=== PATIENT | female | born 1955 | race Caucasian/White ===

== ENCOUNTER 2020-09-30 20:05 | Inpatient (IN) | payer MEDICARE, SELFPAY ==
[2020-09-30 20:06] VITALS: BP 135/92; PULSE 66; RESP 22; TEMP 37.7; O2SAT 84; BMI 33.0
[2020-09-30 20:10] VITALS: O2SAT 97; O2SAT 98
--- NOTE | 2020-09-30 20:21 | ED.VIS.GEN ---
History of Present Illness Chief Complaint: Shortness of Breath Informant: Patient Narrative: 64-year-old female presenting with hypoxia. She said she got sick about 2 weeks ago and started off with a cough, congestion, runny nose. She is had no change in taste or smell. He does not know if she had a fever. She states is not taking Tylenol and ibuprofen. She has a decreased appetite but no nausea or vomiting. She denies chest pain. She states she is short of breath especially when she is coughing a lot. Patient was seen at urgent care and had pulse ox in the 80s. She states she does not wear home O2. Past Medical History - Allergies and Home Meds Allergies/Adverse Reactions: Allergies epinephrine Allergy (Verified 09/30/20 20:10) Anaphylaxis Penicillins Adverse Reaction (Verified 09/30/20 20:10) NEEDS FOLLOW-UP Past Medical History: - - MS, GERD, hyperlipidemia Surgical History: noncontributory Lives: Alone Smoking Status: Former smoker Alcohol: None Drugs: None Review of Systems General: Reports: Malaise. Denies: Chills, Fever, Sweats Eyes: Denies: Visual changes - bilaterally, Diplopia ENT: Reports: Rhinorrhea, - - No change in taste or smell Cardiovascular: Denies: Chest pain, Palpitations Respiratory: Reports: Dyspnea, Cough, Sputum Gastrointestinal: Reports: - - Decreased appetite. Denies: Abdominal pain, Nausea, Vomiting Genitourinary: Denies: Dysuria, Hematuria Musculoskeletal: Reports: Myalgias. Denies: Arthralgias Skin: Denies: Rash, Abscess Neurological: Reports: Headache. Denies: Parasthesia, Numbness Physical Exam Vital Signs/Narrative: Vital Signs Temp Pulse Resp BP Pulse Ox 09/30/20 20:10 97 09/30/20 20:06 99.8 F H 66 22 H 135/92 H 84 Inital Vital Signs reviewed: Yes General: Unkempt, Acute Distress - Hypoxic on room air Eyes: Perrl, EOMI ENT: Dry mucous membranes, Nasal congestion Cardiovascular: Regular rate, Regular rhythm Respiratory: No distress, Decreased Air Movement Abdomen: Soft, Nontender, Nondistended Extremities: Nontender, No edema Skin: Normal color, No rash. Negative for: Cyanosis Neurological: Alert, Oriented x3, Left side facial droop Psychological: Negative for: Depressed, Tearful Diagnostic/Tx/Re-eval Clinical Impression(s) from Imaging Studies Chest X-Ray 09/30/20 21:36 IMPRESSION: Mild to moderate bilateral pneumonia, right greater than left. Electronically Signed: Carlos Salomon MD at 22:18 EST , Service support , Laboratory Data 09/30/20 09/30/20 09/30/20 20:20 20:20 20:20 WBC 4.7 RBC 4.39 Hgb 12.9 Hct 37.7 MCV 85.9 MCH 29.4 MCHC 34.2 RDW Std Deviation 41.6 RDW Coeff of Antonio 13.2 Plt Count 129 L MPV 10.1 Immature Gran % (Auto) 0.400 Neut % (Auto) 75.6 H Lymph % (Auto) 16.3 L [place] % (Auto) 7.5 Eos % (Auto) 0.0 Baso % (Auto) 0.2 Absolute Neuts (auto) 3.5 Absolute Lymphs (auto) 0.76 L Nucleated RBC % 0 Reactive Lymphocytes RARE PT 12.7 INR 1.0 APTT 33.4 Sodium 137 Potassium 3.3 L Chloride 103 Carbon Dioxide 28.0 Anion Gap 6 BUN 6 L Creatinine 0.74 Estim Creat Clear Calc 59.48 Est GFR (MDRD) Af Amer 101 Est GFR (MDRD) Non-Af 84 BUN/Creatinine Ratio 8.1 L Glucose 110 H Lactic Acid Calcium 8.4 L Total Bilirubin 0.50 AST 43 H ALT 28 Alkaline Phosphatase 82 Troponin I < 0.015 Total Protein 7.2 Albumin 3.0 L Globulin 4.2 Albumin/Globulin Ratio 0.7 L Urine Color Urine Clarity Urine pH Ur Specific [place] [employer] Urine Protein Urine Glucose (UA) Urine Ketones Urine Occult Blood Urine Nitrite Urine Bilirubin Urine Urobilinogen Ur Leukocyte Esterase Urine RBC Urine WBC Ur Squamous Epith Cells Urine Bacteria Urine Mucus COVID-19 (SARAHY) 09/30/20 09/30/20 09/30/20 20:20 21:35 21:50 WBC RBC Hgb Hct MCV MCH MCHC RDW Std Deviation RDW Coeff of Antonio Plt Count MPV Immature Gran % (Auto) Neut % (Auto) Lymph % (Auto) [place] % (Auto) Eos % (Auto) Baso % (Auto) Absolute Neuts (auto) Absolute Lymphs (auto) Nucleated RBC % Reactive Lymphocytes PT INR APTT Sodium Potassium Chloride Carbon Dioxide Anion Gap BUN Creatinine Estim Creat Clear Calc Est GFR (MDRD) Af Amer Est GFR (MDRD) Non-Af BUN/Creatinine Ratio Glucose Lactic Acid 1.3 Calcium Total Bilirubin AST ALT Alkaline Phosphatase Troponin I Total Protein Albumin Globulin Albumin/Globulin Ratio Urine Color Yellow Urine Clarity Clear Urine pH 7.0 Ur Specific [place] [employer] 1.005 Urine Protein 15 H Urine Glucose (UA) Normal Urine Ketones Negative Urine Occult Blood Negative Urine Nitrite Negative Urine Bilirubin Negative Urine Urobilinogen Normal Ur Leukocyte Esterase 25 H Urine RBC 0 SEEN Urine WBC 0-5 SEEN Ur Squamous Epith Cells 0 SEEN Urine Bacteria 0 SEEN Urine Mucus 0 SEEN COVID-19 (SARAHY) Detected - Rhythm Strip Rhythm Strip: Sinus Rhythm - EKG Initial EKG Interpretation: Sinus Rhythm, No Acute Injury Pattern - Medical Decision Making 64-year-old female presents with hypoxia. She states is been sick for 2 weeks. She does not believe she had a fever. Patient was tachypneic and hypoxic on arrival sepsis work-up was initiated. Patient was not given a bolus of fluids due to concern for Covid?19. Her EKG interpreted by myself is sinus rhythm at 65 bpm. There is no signs of ischemic change. Chest x-ray shows bilateral pneumonia as read by myself and the radiologist. Lab work-up is consistent with viral pneumonia and she tested positive for Covid?19. Her pulse ox is stable on 2 L of O2 via nasal cannula. Patient was discussed with hospitalist due to need for oxygen supplementation. She will be admitted to the hospital in stabilized condition. Impression: 1. Covid?19 pneumonia
--- NOTE | 2020-09-30 20:33 | EKG12_ITS ---
Test Reason : SOB Blood Pressure : / mmHG Vent. Rate : 065 BPM Atrial Rate : 065 BPM P-R Int : 190 ms QRS Dur : 080 ms QT Int : 396 ms P-R-T Axes : 019 -05 004 degrees QTc Int : 411 ms Normal sinus rhythm Minimal voltage criteria for LVH, may be normal variant Borderline ECG Confirmed by PARAMJIT BURNETT, NING ([id number]), supervising film or videotape editor MANJIT GUIDO ([id number]) on 10/02/2020 2:06:36 PM Referred By: Wilfred Miller Confirmed By:NING YUSUF MD
[2020-09-30 20:36] VITALS: O2SAT 96
[2020-09-30 20:46] LABS: Absolute Lymphocyte Count 0.76 X10^3/uL (0.83-4.51); Absolute Neutrophil Count 3.5 X10^3/uL (2.0-7.7); Basophil# 0.01 X10^3/uL; Basophil% 0.2 % (0-1); Hematocrit 37.7 % (37-47); Hemoglobin 12.9 g/dL (12.0-15.0); Lymphocyte # 0.76 X10^3/ul (4.0); Lymphocyte % 16.3 % (19-41); Mean Corp Hgb Conc 34.2 g/dL (32-36); Mean Corpuscular Hgb 29.4 pg (27.0-32.0); Mean Corpuscular Volume 85.9 fL (81-99); Mean Platelet Vol. 10.1 fl (6.2-12.0); Monocyte# 0.35 X10^3/uL; Monocyte% 7.5 % (0-10); NRBC Flagged by Analyzer 0 % (0-5); Neutrophil # 3.53 X10^3/uL (2.7-7.7); Neutrophil % 75.6 % (47-70); POSITIVE MORPHOLOGY YES; Platelet Count 129 K/mm3 (150-450); RBC Distribution Width CV 13.2 % (11.6-14.6); RBC Distribution Width SD 41.6 fl (35.1-43.9); Red Blood Count 4.39 M/mm3 (4.2-5.4); White Blood Count 4.7 K/mm3 (4.4-11.0)
[2020-09-30 20:50] LABS: Differential Indicated SCAN CRITERIA MET
[2020-09-30 20:53] LABS: Prothrombin Time (Protime)PT. 12.7 SECONDS (11.7-14.9)
[2020-09-30 20:54] LABS: Partial Thromboplast Time 33.4 Seconds (24.1-36.2)
[2020-09-30 21:08] LABS: ALB/GLOB Ratio 0.7 RATIO (0.9-2.4); AST(SGOT) 43 U/L (15-37); Alanine Aminotransfer ALT/SGPT 28 U/L (13-56); Alkaline Phosphatase 82 U/L (45-117); Anion Gap 6 (5-15); BUN 6 mg/dL (7-18); BUN/Creat Ratio 8.1 RATIO (10-20); Calcium,Total 8.4 mg/dL (8.5-10.1); Chloride 103 mmol/L (98-107); Creatinine, Serum 0.74 mg/dL (0.55-1.02); EST Glomerular Filtration Rate 84 mL/min (>60); Est Glom Filt Rate - Afr Amer 101 mL/min (>60); Estimated Creatinine Clearance 59.48 ml/min; Globulin 4.2 g/dL (2.2-4.2); Glucose 110 mg/dL (74-106); Lactic Acid 1.3 mmol/L (0.4-1.9); Potassium 3.3 mmol/L (3.5-5.1); Protein, Total 7.2 g/dL (6.4-8.2); Sodium Level 137 mmol/L (136-145)
[2020-09-30 21:10] VITALS: BP 125/60; PULSE 61; RESP 18; TEMP 38.8; O2SAT 96
[2020-09-30 21:29] LABS: Reactive Lymphocyte RARE
--- NOTE | 2020-09-30 21:36 | RAD_ITS ---
STUDY: X-RAY CHEST REASON FOR EXAM: Female, 64 years old. patient with cough, shortness of breath, diarrhea, lethargy for 2 weeks. patient sent over from urgent care for low pulse ox. TECHNIQUE: Single AP portable view of the chest. COMPARISON: None. FINDINGS: Mild patchy consolidation is present in the left mid to lower lung narayanan and moderate consolidation is present throughout the right mid to lower lung narayanan. Trace bilateral pleural effusions also present. Normal size heart. Normal mediastinum and belen. Normal visualized pulmonary arteries. Normal visualized aortic arch and descending thoracic aorta. There are diffuse degenerative changes of the visualized thoracic spine. Normal visualized ribs, clavicles, and shoulders. There is no demonstrated abnormality of the visualized soft tissue structures of the upper abdomen. RAD/Chest 1 View (Portable) IMPRESSION: Mild to moderate bilateral pneumonia, right greater than left. Electronically Signed: Carlos Salomon MD at 22:18 EST , Service support ,
[2020-09-30 21:58] LABS: Bacteria 0 SEEN /hpf (None Seen); Mucous, Urine 0 SEEN /hpf (<or=2+); Red Blood Cells-Urine 0 SEEN /hpf (0-5); Squamous Epithelial Cells - UA 0 SEEN /hpf (5-10)
[2020-09-30 22:04] LABS: Color, Urine Yellow (Yellow); Glucose, Dipstick Normal (Normal); Ketone-Dipstick Negative (Negative); Leukocyte Esterase-Dipstick 25 /ul (Negative); Nitrite-Dipstick Negative (Negative); Occult Blood-Urine Negative /ul (Negative); Protein-Dipstick 15 mg/dl (Negative); Specific Gravity, Urine 1.005 (1.002-1.030); Urine Bilirubin Dipstick Negative (Negative); Urine Clarity Clear (Clear); Urine Urobilinogen Normal (Normal)
[2020-09-30 22:10] VITALS: BP 131/61; PULSE 62; RESP 18; TEMP 37.2; O2SAT 95
[2020-09-30 22:17] LABS: White Blood Cells 0-5 SEEN /hpf (0-5)
[2020-09-30 23:00] LABS: Probe Check PASS; Specimen Processing Control PASS
[2020-09-30 23:10] VITALS: BP 149/84; PULSE 59; RESP 18; TEMP 37.8; O2SAT 96
--- NOTE | 2020-09-30 23:51 | PCM.HP.STD ---
Problem List (1) SARS pneumonia Status: Acute (2) COVID-19 Status: Acute History of Present Illness Date of Admission: 09/30/20 Chief Complaint: malaise The patient is a 64 year old F with a significant osteopenia emergency department with a 2-week history of malaise. Associated with her symptoms is Shortness of breath and a productive cough of clear sputum. Further she has back pain; lightheadedness; general body weakness and fatigue. She department on room air her oxygen saturation was in the 80s. Past Medical History Medical History: Medical History (Last Updated 10/01/20 @ 05:[address] Wilfred Miller MD) Hyperlipidemia E78.5 Allergies epinephrine Allergy (Verified 09/30/20 20:10) Anaphylaxis Penicillins Adverse Reaction (Verified 09/30/20 20:10) NEEDS FOLLOW-UP Home Medications: Ambulatory Orders Medication Instructions Recorded Alendronate Sodium 70 mg PO SA 09/30/20 Atorvastatin Calcium [Lipitor] 20 mg PO QHS 09/30/20 Famotidine 20 mg PO BID 09/30/20 Oxybutynin [Ditropan] 5 mg PO BID 09/30/20 Loratadine 10 mg PO DAILY 10/01/20 Surgical History: hysterectomy, - - spur removal from feet Lives: Alone Smoking Status: Never smoker Alcohol: None Drugs: None - *Family History Maternal History Items: Diabetes Paternal History Items: Dementia Review of Systems Constitutional: Reports: Malaise, Fatigue. Denies: Weight Change HEENT: Denies: Head Aches, Sinus Congestion, Sinus Drainage Cardiovascular: Reports: Light Headedness. Denies: Chest Pain, Palpitations Respiratory: Reports: Cough, Shortness of Breath, Sputum production Gastrointestinal: Denies: Abdominal Pain, Nausea, Vomiting Genitourinary: Denies: Dysuria Musculoskeletal: Reports: Back Pain. Denies: Joint Pain, Joint Tenderness Skin: Denies: Rash, Wounds Neurological: Denies: Numbness, Tingling, Focal weakness Psychiatric: Denies: Anxiety, Depression, Homicidal Ideations, Suicidal Ideations Hematologic/ Lymphatic: Denies: Easy Bruising, Easy Bleeding VTE Information - Inpt Only VTE Present on Admission: No VTE Mechan Device Prophylaxis: None VTE Pharm Prophylaxis ordered?: Yes Patient Problems: Active and Suspected Problems (Last Updated 10/01/20 @ 05:[address] Wilfred Miller MD) SARS pneumonia (Acute) COVID-19 (Acute) - Physical Exam Vitals/I&O's: Vital Signs Temp Pulse Resp BP Pulse Ox 100.1 F H 59 L 18 149/84 H 96 09/30/20 23:10 09/30/20 23:10 09/30/20 23:10 09/30/20 23:10 09/30/20 23:10 Oxygen Flow Rate (L/min) 2 Oxygen Delivery Method Nasal Cannula Weight: 79.3 kg Body Mass Index (BMI) 33.0 General: Alert, Oriented x3, Cooperative HEENT: Atraumatic, PERRLA, EOMI, Normocephalic Neck: Supple, No JVD, Negative Carotid Bruits Lungs: Wheezes Cardiovascular: Regular rate, Normal S2, No murmurs Abdomen: Bowel Sounds Present, Soft, Non Tender Extremities: No edema, Capillary Refill Less than 3 Seconds Skin: No rashes, No breakdown Musculoskeletal: No Tenderness to Palpation of Joints or Extremities Neurological: Cranial nerves II-XII grossly intact Psych/Mental Status: Normal Affect, Appropriate Laboratory Results 09/30/20 20:20: WBC 4.7, RBC 4.39, Hgb 12.9, Hct 37.7, MCV 85.9, MCH 29.4, MCHC 34.2, RDW Std Deviation 41.6, RDW Coeff of Antonio 13.2, Plt Count 129 L, MPV 10.1, Immature Gran % (Auto) 0.400, Neut % (Auto) 75.6 H, Lymph % (Auto) 16.3 L, [place] % (Auto) 7.5, Eos % (Auto) 0.0, Baso % (Auto) 0.2, Absolute Neuts (auto) 3.5, Absolute Lymphs (auto) 0.76 L, Nucleated RBC % 0, Reactive Lymphocytes RARE 09/30/20 20:20: PT 12.7, INR 1.0, APTT 33.4 09/30/20 20:20: Sodium 137, Potassium 3.3 L, Chloride 103, Carbon Dioxide 28.0, Anion Gap 6, BUN 6 L, Creatinine 0.74, Estim Creat Clear Calc 59.48, Est GFR (MDRD) Af Amer 101, Est GFR (MDRD) Non-Af 84, BUN/Creatinine Ratio 8.1 L, Glucose 110 H, Calcium 8.4 L, Total Bilirubin 0.50, AST 43 H, ALT 28, Alkaline Phosphatase 82, Troponin I < 0.015, Total Protein 7.2, Albumin 3.0 L, Globulin 4.2, Albumin/Globulin Ratio 0.7 L 09/30/20 20:20: Lactic Acid 1.3 09/30/20 21:35: COVID-19 (SARAHY) Detected 09/30/20 21:50: Urine Color Yellow, Urine Clarity Clear, Urine pH 7.0, Ur Specific [place] 1.005, Urine Protein 15 H, Urine Glucose (UA) Normal, Urine Ketones Negative, Urine Occult Blood Negative, Urine Nitrite Negative, Urine Bilirubin Negative, Urine Urobilinogen Normal, Ur Leukocyte Esterase 25 H, Urine RBC 0 SEEN, Urine WBC 0-5 SEEN, Ur Squamous Epith Cells 0 SEEN, Urine Bacteria 0 SEEN, Urine Mucus 0 SEEN Assessment/Plan All Active Problems (Last Updated 10/01/20 @ 05:[address] Wilfred Miller MD) SARS pneumonia (Acute) COVID-19 (Acute) Acute hypoxemic respiratory insufficiency secondary to SARS coronavirus 2. Patient with oxygen saturation of 84% on room air and required supplemental oxygenation. Supplemental oxygenation continued. Impression of chest x-ray by radiologist: Mild to moderate bilateral pneumonia, right greater than left. Actual x-ray image was independently interpreted. I agree with the latest interpretation. COVID-19 PCR was positive. Procalcitonin ordered. D-dimer ordered returned elevated. Impression of chest CTA by radiologist: No demonstrated pulmonary embolism or anterior dissection. Ill-defined subpleural groundglass opacities are seen more prominent in the lung bases, may represent atypical pneumonia or viral pneumonia (COVID-19?). Actual CTA was independently visualized. I agree with radiologist interpretation. Tylenol for fever and Mucinex for cough ordered. Decadron and remdesivir ordered. Trend CBC and CMP. Hypokalemia Replaced Trend CMP. Dysuria Urinalysis was not revealing. Follow urine culture ordered at the emergency department. Osteopenia Alendronate continued HLD Lipitor continued Overactive bladder Ditropan continued Allergies: Loratadine continued DVT Prophylaxis Subcutaneous Lovenox ordered Inpatient E&M: [id number] Init Hosp L3
[2020-10-01] VITALS (10 sets, daily range): BP systolic 109–138; BP diastolic 56–78; PULSE 49–66; RESP 16–20; TEMP 35.5–37.7; O2SAT 92–96; BMI 29.2; BMI 29.3
--- NOTE | 2020-10-01 00:27 | PCS.PANDOC ---
PANDEMIC DOCUMENTATION INITIATED: Date: 10/01/2020 Time:0012
[2020-10-01] MEDS: 0.9% Saline Lock 10 ML Syringe IV ×2 (00:59→22:26)
[2020-10-01] MEDS: Acetaminophen 325 MG Tablet 650 MG PO (01:00)
[2020-10-01] MEDS: dexAMETHasone 10 MG/ML Vial 6 MG IV (01:00)
[2020-10-01 01:19] LABS: D-Dimer Quantitative (DVT/PE) 3.18 FEU/ug/m (0.27-0.49)
--- NOTE | 2020-10-01 01:20 | CT_ITS ---
STUDY: CTA CHEST REASON FOR EXAM: Female, 64 years old. ELEVATED D-DIMER, SEVERE ACUTE RESPIRATORY SYNDROME DUE TO COVID, O2 IN THE 80''S RADIATION DOSAGE (If Supplied By Facility): CTDIvol = ( 13.47 ) mGy, DLP = ( 381.79 ) mGycm TECHNIQUE: The examination was performed with the intravenous administration of IV 75mL Isovue-370. Post-processing of the angiographic images was performed, with multiplanar reformation and 3D reconstruction. Individualized dose optimization techniques were used for this CT. COMPARISON: None. FINDINGS: Normal enhancement of the main pulmonary artery and right and left pulmonary arteries. Normal enhancement of the bilateral peripheral pulmonary arteries. There is no demonstrated pulmonary embolism. Normal thoracic aorta and visualized great vessels. There is no demonstrated aortic dissection. Normal heart and pericardium. Normal mediastinum. Normal hilar regions. Normal visualized trachea and bronchi. The lungs are well expanded. Ill-defined subpleural groundglass opacities are seen more prominent in the lung bases , may represent atypical pneumonia or viral pneumonia (COVID-19 ?). Normal pleura. Normal chest wall structures. Normal osseous structures. Normal visualized upper abdomen. CT/CTA Chest W/WO Contrast IMPRESSION: No demonstrated pulmonary embolism or arterial dissection. Ill-defined subpleural groundglass opacities are seen more prominent in the lung bases , may represent atypical pneumonia or viral pneumonia (COVID-19 ?). Electronically Signed: Ermelinda Esquivel, at 2:51 EST Tel , Service support ,
[2020-10-01 02:17] LABS: Procalcitonin < 0.01 ng/mL (0.00-0.09)
[2020-10-01 05:44] LABS: Absolute Lymphocyte Count 0.66 X10^3/uL (0.83-4.51); Absolute Neutrophil Count 3.8 X10^3/uL (2.0-7.7); Basophil# 0.01 X10^3/uL; Basophil% 0.2 % (0-1); Hematocrit 37.9 % (37-47); Hemoglobin 12.7 g/dL (12.0-15.0); Lymphocyte # 0.66 X10^3/ul (4.0); Lymphocyte % 14.1 % (19-41); Mean Corp Hgb Conc 33.5 g/dL (32-36); Mean Corpuscular Hgb 28.9 pg (27.0-32.0); Mean Corpuscular Volume 86.3 fL (81-99); Mean Platelet Vol. 9.7 fl (6.2-12.0); Monocyte# 0.16 X10^3/uL; Monocyte% 3.4 % (0-10); NRBC Flagged by Analyzer 0 % (0-5); Neutrophil # 3.83 X10^3/uL (2.7-7.7); Neutrophil % 81.7 % (47-70); Platelet Count 134 K/mm3 (150-450); RBC Distribution Width CV 13.2 % (11.6-14.6); RBC Distribution Width SD 41.7 fl (35.1-43.9); Red Blood Count 4.39 M/mm3 (4.2-5.4); White Blood Count 4.7 K/mm3 (4.4-11.0)
[2020-10-01 05:58] LABS: ALB/GLOB Ratio 0.7 RATIO (0.9-2.4); AST(SGOT) 44 U/L (15-37); Alanine Aminotransfer ALT/SGPT 28 U/L (13-56); Albumin, Serum 2.8 g/dL (3.2-5.0); Alkaline Phosphatase 77 U/L (45-117); Anion Gap 5 (5-15); BUN 7 mg/dL (7-18); BUN/Creat Ratio 9.8 RATIO (10-20); Calcium,Total 8.3 mg/dL (8.5-10.1); Chloride 106 mmol/L (98-107); Creatinine, Serum 0.72 mg/dL (0.55-1.02); EST Glomerular Filtration Rate 88 mL/min (>60); Est Glom Filt Rate - Afr Amer 106 mL/min (>60); Estimated Creatinine Clearance 61.13 ml/min; Globulin 4.2 g/dL (2.2-4.2); Glucose 180 mg/dL (74-106); Magnesium 1.8 mg/dL (1.6-2.6); Potassium 4.5 mmol/L (3.5-5.1); Sodium Level 138 mmol/L (136-145)
[2020-10-01] MEDS: Enoxaparin 30 MG/0.3 ML Syringe SC ×2 (08:28→20:03)
[2020-10-01] MEDS: Oxybutynin 5 MG Tablet PO ×2 (08:29→20:03)
[2020-10-01] MEDS: dexAMETHasone 4 MG Tablet 6 MG PO (08:29)
[2020-10-01] MEDS: Famotidine 20 MG Tablet PO (08:29)
--- NOTE | 2020-10-01 14:05 | PN_ITS ---
Patient Problems: Active and Suspected Problems (Last Updated 10/01/20 @ 05:[address] Wilfred Miller MD) SARS pneumonia (Acute) COVID-19 (Acute) Reason for Visit: COVID 19 Subjective: Coughing fits. Diarrhea since yesterday. Vitals/I&O's: Vital Signs Temp Pulse Resp BP Pulse Ox 35.8 C L 66 20 H 109/61 92 10/01/20 11:59 10/01/20 11:59 10/01/20 11:59 10/01/20 11:59 10/01/20 11:59 Oxygen Flow Rate (L/min) 2 Oxygen Delivery Method Nasal Cannula Weight: 70.335 kg Body Mass Index (BMI) 29.2 Intake and Output for Last 24 Hours 09/29/20 09/30/20 10/01/20 23:59 23:59 23:59 Intake Total 251.75 / 251.75 Balance 251.75 / 251.75 General: Alert, No apparent distress HEENT: Atraumatic, Normocephalic Oral: Moist Mucosa, No Gingival or Mucosal Lesions/ Ulcerations Neck: No Nodes, Thyroid Normal Size and Texture Lungs: Clear to auscultation, Normal air movement, No rhonchi, No wheeze, No rales Cardiovascular: Regular rate, Regular Rhythm, Normal S1, Normal S2, No murmurs Abdomen: Bowel Sounds Present, Soft, Non Tender, Non-Distended, No Hepato- splenomegaly Extremities: No clubbing, No edema Skin: No rashes, No breakdown Psych/Mental Status: Normal Affect, Appropriate Laboratory Results 09/30/20 20:20: WBC 4.7, RBC 4.39, Hgb 12.9, Hct 37.7, MCV 85.9, MCH 29.4, MCHC 34.2, RDW Std Deviation 41.6, RDW Coeff of Antonio 13.2, Plt Count 129 L, MPV 10.1, Immature Gran % (Auto) 0.400, Neut % (Auto) 75.6 H, Lymph % (Auto) 16.3 L, [place] % (Auto) 7.5, Eos % (Auto) 0.0, Baso % (Auto) 0.2, Absolute Neuts (auto) 3.5, Absolute Lymphs (auto) 0.76 L, Nucleated RBC % 0, Reactive Lymphocytes RARE 09/30/20 20:20: PT 12.7, INR 1.0, APTT 33.4 09/30/20 20:20: Sodium 137, Potassium 3.3 L, Chloride 103, Carbon Dioxide 28.0, Anion Gap 6, BUN 6 L, Creatinine 0.74, Estim Creat Clear Calc 59.48, Est GFR (MDRD) Af Amer 101, Est GFR (MDRD) Non-Af 84, BUN/Creatinine Ratio 8.1 L, Glucose 110 H, Calcium 8.4 L, Total Bilirubin 0.50, AST 43 H, ALT 28, Alkaline Phosphatase 82, Troponin I < 0.015, Total Protein 7.2, Albumin 3.0 L, Globulin 4 .2, Albumin/Globulin Ratio 0.7 L 09/30/20 20:20: Lactic Acid 1.3 09/30/20 20:20: D-Dimer Quant (PE/DVT) 3.18 H* 09/30/20 20:20: Procalcitonin < 0.01 09/30/20 21:35: COVID-19 (SARAHY) Detected 09/30/20 21:50: Urine Color Yellow, Urine Clarity Clear, Urine pH 7.0, Ur Specific [place] 1.005, Urine Protein 15 H, Urine Glucose (UA) Normal, Urine Ketones Negative, Urine Occult Blood Negative, Urine Nitrite Negative, Urine Bilirubin Negative, Urine Urobilinogen Normal, Ur Leukocyte Esterase 25 H, Urine RBC 0 SEEN, Urine WBC 0-5 SEEN, Ur Squamous Epith Cells 0 SEEN, Urine Bacteria 0 SEEN, Urine Mucus 0 SEEN 10/01/20 05:32: WBC 4.7, RBC 4.39, Hgb 12.7, Hct 37.9, MCV 86.3, MCH 28.9, MCHC 33.5, RDW Std Deviation 41.7, RDW Coeff of [place] 13.2, Plt Count 134 L, MPV 9.7, Immature Gran % (Auto) 0.600, Neut % (Auto) 81.7 H, Lymph % (Auto) 14.1 L, [place] % (Auto) 3.4, Eos % (Auto) 0.0, Baso % (Auto) 0.2, Absolute Neuts (auto) 3.8, Absolute Lymphs (auto) 0.66 L, Nucleated RBC % 0 10/01/20 05:32: Sodium 138, Potassium 4.5, Chloride 106, Carbon Dioxide 27.0, Anion Gap 5, BUN 7, Creatinine 0.72, Estim Creat Clear Calc 61.13, Est GFR (MDRD) Af Amer 106, Est GFR (MDRD) Non-Af 88, BUN/Creatinine Ratio 9.8 L, Glucose 180 H, Calcium 8.3 L, Magnesium 1.8, Total Bilirubin 0.50, AST 44 H, ALT 28, Alkaline Phosphatase 77, Total Protein 7.0, Albumin 2.8 L, Globulin 4.2, Albumin/Globulin Ratio 0.7 L Current Medications Acetaminophen (Acetaminophen 325 Mg Tablet) 650 mg PO Q6H PRN PRN PRN Reason: Pain Score 1-10/Temp > 100.7 F Last Admin: 10/01/20 01:00 Dose: 325 mg Documented by: Albuterol Sulfate (Albuterol Sulfate 8 Gm Inhaler (60 Puffs)) 2 puff INHALATION Q6H PRN PRN PRN Reason: SOB/WHEEZING Atorvastatin Calcium (Atorvastatin Calcium 20 Mg Tablet) 20 mg PO QHS [facility] Dexamethasone (Dexamethasone 4 Mg Tablet) 6 mg PO DAILY [facility] Last Admin: 10/01/20 08:29 Dose: 6 mg Documented by: Enoxaparin Sodium (Enoxaparin 30 Mg/0.3 Ml Syringe) 30 mg SC BID [facility] Last Admin: 10/01/20 08:28 Dose: 30 mg Documented by: Famotidine (Famotidine 20 Mg Tablet) 20 mg PO DAILY [facility] Last Admin: 10/01/20 08:29 Dose: 20 mg Documented by: Remdesivir 100 mg/ Sodium (Chloride) 250 mls @ 125 mls/hr IV DAILY@2200 [facility] Stop: 10/04/20 23:59 Sodium Chloride () 250 mls @ 15 mls/hr IV .[id number] PRN PRN Reason: Saline Flush Last Infusion: 10/01/20 03:07 Dose: 15 mls/hr Documented by: Melatonin (Melatonin 3 Mg Tablet) 3 mg PO QHS PRN PRN PRN Reason: INSOMNIA Miscellaneous Information (Inhaler, Assist Devices 1 Each Spacer) 1 each INHALATION Q6H PRN PRN PRN Reason: SOB/WHEEZING Ondansetron HCl (Ondansetron 4 Mg/2 Ml Vial) 4 mg IV Q8H PRN PRN PRN Reason: NAUSEA/VOMITING Oxybutynin Chloride (Oxybutynin 5 Mg Tablet) 5 mg PO BID [facility]IN Last Admin: 10/01/20 08:29 Dose: 5 mg Documented by: Sodium Chloride (0.9% Saline Lock 10 Ml Syringe) 10 - 40 ml IV UD PRN PRN Reason: SALINE FLUSH Last Admin: 10/01/20 00:59 Dose: 10 ml Documented by: STROKE Vital Signs/Narrative: Vital Signs Temp Pulse Resp BP Pulse Ox 10/01/20 11:59 35.8 C L 66 20 H 109/61 92 10/01/20 10:53 95 Medical Necessity - Tobacco Use Smoking Status: Never smoker Assessment/Plan All Active Problems (Last Updated 10/01/20 @ 05:[address] Wilfred Miller MD) SARS pneumonia (Acute) COVID-19 (Acute) 1. COVID 19 pneumonia * on dexa and rem 2. acute hypoxic respiratory insufficiency * 2/2 above * wean oxygen as tolerated 3. Diarrhea * prior to arrival * loperamide 4. VTE prophylaxis: LMWH Inpatient E&M: [id number] Subs Hosp L2
[2020-10-01] MEDS: guaiFENesin/Codeine 5 ML UDC PO ×2 (14:26→22:03)
[2020-10-01] MEDS: Loperamide 2 MG Capsule PO (14:27)
--- NOTE | 2020-10-01 15:41 | CHAPLAIN ---
Type of Pastoral Visit ___ Initial Visit ___ Follow-up Visit ___ On-call Visit ___ General Patient Visit ___ Spiritual Assessment ___ Family Conference ___ Bereavement ___ Rapid Response ___ Code Blue _x__ Other (describe below) Pastoral Care Referral From ___ Patient ___ Family ___ Nurse ___ Physician ___ Taker Away ___ Commercial Accountant _x__ Other (describe below) Sacrament/Intervention _x__ Active listening ___ Anointing ___ Shinto ___ Bereavement ___ Communion _x__ Ruby exploration ___ _x__ Life review _x__ Prayer ___ Reconciliation ___ Sacrament of Sick ___ Supportive presence ___ Wedding ___ Other (describe below) Pastoral Comments phone call made into this isolation room to offer support; pt identifies as Christianity and new to this area; pt describes her situation and decision to move to be near family; pt is of the [employer] ruby and asks about such churches in this area; pt goal is to find a judaism locally; pt welcomes the support and prayer by phone; pt states she is improving
[2020-10-01] MEDS: Atorvastatin Calcium 20 MG Tablet PO (20:03)
--- NOTE | 2020-10-01 22:42 | NURSING ---
Pt's remdesivir was commenced (2nd dose). 25 mls into infusion pt c/o widespread burning, hotness and shortness of breath. requested infusion be stopped. same attended. vitals unchanged. no labored breathing noted. pt stated symptoms were settling. notified physician and ADR hotline. continue to monitor.
[2020-10-02] VITALS (7 sets, daily range): BP systolic 105–137; BP diastolic 49–82; PULSE 49–68; RESP 16–18; TEMP 36.1–37; O2SAT 91–96
[2020-10-02 06:44] LABS: Absolute Neutrophil Count 5.6 X10^3/uL (2.0-7.7); Hemoglobin 12.5 g/dL (12.0-15.0); Lymphocyte % 14.2 % (19-41); Mean Corp Hgb Conc 32.9 g/dL (32-36); Mean Corpuscular Hgb 28.2 pg (27.0-32.0); Mean Corpuscular Volume 85.6 fL (81-99); Mean Platelet Vol. 10.7 fl (6.2-12.0); Monocyte# 0.41 X10^3/uL; Monocyte% 5.8 % (0-10); NRBC Flagged by Analyzer 0 % (0-5); Neutrophil # 5.57 X10^3/uL (2.7-7.7); Neutrophil % 79.4 % (47-70); POSITIVE MORPHOLOGY YES; Platelet Count 155 K/mm3 (150-450); RBC Distribution Width CV 13.2 % (11.6-14.6); Red Blood Count 4.44 M/mm3 (4.2-5.4)
[2020-10-02 06:51] LABS: Differential Indicated SCAN CRITERIA MET
[2020-10-02 07:06] LABS: ALB/GLOB Ratio 0.8 RATIO (0.9-2.4); AST(SGOT) 42 U/L (15-37); Alanine Aminotransfer ALT/SGPT 31 U/L (13-56); Albumin, Serum 2.8 g/dL (3.2-5.0); Alkaline Phosphatase 79 U/L (45-117); Anion Gap 3 (5-15); Atypical Lymphocyte 1+ %; BUN 12 mg/dL (7-18); Calcium,Total 8.6 mg/dL (8.5-10.1); Chloride 110 mmol/L (98-107); Creatinine, Serum 0.52 mg/dL (0.55-1.02); Differential Comment SCANNED; EST Glomerular Filtration Rate 126 mL/min (>60); Est Glom Filt Rate - Afr Amer 153 mL/min (>60); Estimated Creatinine Clearance 84.65 ml/min; Globulin 3.6 g/dL (2.2-4.2); Glucose 159 mg/dL (74-106); Potassium 4.5 mmol/L (3.5-5.1); Protein, Total 6.4 g/dL (6.4-8.2); Sodium Level 141 mmol/L (136-145)
[2020-10-02] MEDS: dexAMETHasone 4 MG Tablet 6 MG PO (08:09)
[2020-10-02] MEDS: Enoxaparin 30 MG/0.3 ML Syringe SC ×2 (08:10→22:05)
[2020-10-02] MEDS: Famotidine 20 MG Tablet PO (08:10)
[2020-10-02] MEDS: Oxybutynin 5 MG Tablet PO ×2 (08:10→22:06)
[2020-10-02] MEDS: guaiFENesin/Codeine 5 ML UDC PO (12:02)
--- NOTE | 2020-10-02 14:03 | PCM.PN.HOSP ---
Patient Problems: Active and Suspected Problems (Last Updated 10/01/20 @ 05:[address] Wilfred Miller MD) SARS pneumonia (Acute) COVID-19 (Acute) Reason for Visit: COVID 19 Subjective: Diarrhea improved. Still with coughing fits. Vitals/I&O's: Vital Signs Temp Pulse Resp BP Pulse Ox 37.0 C 68 18 105/49 L 93 10/02/20 08:05 10/02/20 08:05 10/02/20 08:05 10/02/20 08:05 10/02/20 08:40 Oxygen Flow Rate (L/min) 6 Oxygen Delivery Method Nasal Cannula Weight: 70.335 kg Body Mass Index (BMI) 29.2 Intake and Output for Last 24 Hours 09/30/20 10/01/20 10/02/20 23:59 23:59 23:59 Intake Total 537.67 / 777.67 440 / 440 Balance 537.67 / 777.67 440 / 440 General: Alert, No apparent distress HEENT: Atraumatic, Normocephalic Oral: Moist Mucosa, No Gingival or Mucosal Lesions/ Ulcerations Neck: No Nodes, Thyroid Normal Size and Texture Lungs: Clear to auscultation, Normal air movement, No rhonchi, No wheeze, No rales Cardiovascular: Regular rate, Regular Rhythm, Normal S1, Normal S2, No murmurs Abdomen: Bowel Sounds Present, Soft, Non Tender, Non-Distended Extremities: No edema, No Calf Tenderness Psych/Mental Status: Normal Affect, Appropriate Microbiology Past 72 Hours 09/30/20 21:50 Urine, Clean Catch Urine Culture - Final Mixed Gram Positive Organisms Laboratory Results 10/02/20 05:35: WBC 7.0, RBC 4.44, Hgb 12.5, Hct 38.0, MCV 85.6, MCH 28.2, MCHC 32.9, RDW Std Deviation 42.0, RDW Coeff of Antonio 13.2, Plt Count 155, MPV 10.7, Immature Gran % (Auto) 0.600, Neut % (Auto) 79.4 H, Lymph % (Auto) 14.2 L, [place] % (Auto) 5.8, Eos % (Auto) 0.0, Baso % (Auto) 0.0, Absolute Neuts (auto) 5.6, Absolute Lymphs (auto) 1.00, Nucleated RBC % 0, Differential Comment SCANNED, Atypical Lymphocytes 1+ 10/02/20 05:35: Sodium 141, Potassium 4.5, Chloride 110 H, Carbon Dioxide 28.0, Anion Gap 3 L, BUN 12, Creatinine 0.52 L, Estim Creat Clear Calc 84.65, Est GFR (MDRD) Af Amer 153, Est GFR (MDRD) Non-Af 126, BUN/Creatinine Ratio 23.0 H, Glucose 159 H, Calcium 8.6, Total Bilirubin 0.40, AST 42 H, ALT 31, Alkaline Phosphatase 79, Total Protein 6.4, Albumin 2.8 L, Globulin 3.6, Albumin/Globulin Ratio 0.8 L Current Medications Acetaminophen (Acetaminophen 325 Mg Tablet) 650 mg PO Q6H PRN PRN PRN Reason: Pain Score 1-10/Temp > 100.7 F Last Admin: 10/01/20 01:00 Dose: 325 mg Documented by: Albuterol Sulfate (Albuterol Sulfate 8 Gm Inhaler (60 Puffs)) 2 puff INHALATION Q6H PRN PRN PRN Reason: SOB/WHEEZING Atorvastatin Calcium (Atorvastatin Calcium 20 Mg Tablet) 20 mg PO QHS [facility] Last Admin: 10/01/20 20:03 Dose: 20 mg Documented by: Dexamethasone (Dexamethasone 4 Mg Tablet) 6 mg PO DAILY [facility] Last Admin: 10/02/20 08:09 Dose: 6 mg Documented by: Enoxaparin Sodium (Enoxaparin 30 Mg/0.3 Ml Syringe) 30 mg SC BID [facility] Last Admin: 10/02/20 08:10 Dose: 30 mg Documented by: Famotidine (Famotidine 20 Mg Tablet) 20 mg PO DAILY [facility] Last Admin: 10/02/20 08:10 Dose: 20 mg Documented by: Guaifenesin/Codeine Phosphate (Guaifenesin/Codeine 5 Ml Udc) 5 ml PO Q6H PRN PRN PRN Reason: coughing fits Last Admin: 10/02/20 12:02 Dose: 5 ml Documented by: Remdesivir 100 mg/ Sodium (Chloride) 250 mls @ 125 mls/hr IV DAILY@2200 [facility] Stop: 10/04/20 23:59 Last Infusion: 10/01/20 23:41 Dose: Infused Documented by: Sodium Chloride () 250 mls @ 15 mls/hr IV .[id number] PRN PRN Reason: Saline Flush Last Infusion: 10/01/20 18:09 Dose: 0 mls/hr Documented by: Sodium Chloride () 250 mls @ 15 mls/hr IV .[id number] PRN PRN Reason: Saline Flush Sodium Chloride () 250 mls @ 15 mls/hr IV .[id number] PRN PRN Reason: Additional IVPB Infusion Loperamide HCl (Loperamide 2 Mg Capsule) 2 mg PO Q2H PRN PRN PRN Reason: Diarrhea Last Admin: 10/01/20 14:27 Dose: 2 mg Documented by: Melatonin (Melatonin 3 Mg Tablet) 3 mg PO QHS PRN PRN PRN Reason: INSOMNIA Miscellaneous Information (Inhaler, Assist Devices 1 Each Spacer) 1 each INHALATION Q6H PRN PRN PRN Reason: SOB/WHEEZING Ondansetron HCl (Ondansetron 4 Mg/2 Ml Vial) 4 mg IV Q8H PRN PRN PRN Reason: NAUSEA/VOMITING Oxybutynin Chloride (Oxybutynin 5 Mg Tablet) 5 mg PO BID [facility] Last Admin: 10/02/20 08:10 Dose: 5 mg Documented by: Sodium Chloride (0.9% Saline Lock 10 Ml Syringe) 10 - 40 ml IV UD PRN PRN Reason: SALINE FLUSH Last Admin: 10/01/20 22:26 Dose: 20 ml Documented by: Sodium Chloride (0.9% Saline Lock 10 Ml Syringe) 10 - 40 ml IV UD PRN PRN Reason: SALINE FLUSH Medical Necessity - Tobacco Use Smoking Status: Never smoker Assessment/Plan All Active Problems (Last Updated 10/01/20 @ 05:[address] Wilfred Miller MD) SARS pneumonia (Acute) COVID-19 (Acute) 1. COVID 19 pneumonia on dexa and rem 2. acute hypoxic respiratory insufficiency 2/2 above wean oxygen as tolerated 3. Diarrhea prior to arrival loperamide 4. VTE prophylaxis: LMWH Inpatient E&M: 82729 [facility] L2
[2020-10-02] MEDS: Atorvastatin Calcium 20 MG Tablet PO (22:06)
--- NOTE | 2020-10-03 01:45 | NURSING ---
Was on 6L at start of shift, but the tree was not fully connected to flowmeter. Once corrected was able to reduce FiO2 to 2L. Pt pulse ox remained >94%.
[2020-10-03 03:19] VITALS: BP 133/88; PULSE 49; RESP 16; TEMP 36.6; O2SAT 95
[2020-10-03 07:33] LABS: Absolute Lymphocyte Count 1.13 X10^3/uL (0.83-4.51); Absolute Neutrophil Count 7.8 X10^3/uL (2.0-7.7); Basophil# 0.02 X10^3/uL; Basophil% 0.2 % (0-1); Hematocrit 36.7 % (37-47); Hemoglobin 12.4 g/dL (12.0-15.0); Lymphocyte # 1.13 X10^3/ul (4.0); Lymphocyte % 11.8 % (19-41); Mean Corp Hgb Conc 33.8 g/dL (32-36); Mean Corpuscular Hgb 29.1 pg (27.0-32.0); Mean Corpuscular Volume 86.2 fL (81-99); Mean Platelet Vol. 10.6 fl (6.2-12.0); Monocyte# 0.51 X10^3/uL; Monocyte% 5.3 % (0-10); NRBC Flagged by Analyzer 0 % (0-5); Neutrophil # 7.82 X10^3/uL (2.7-7.7); Neutrophil % 81.3 % (47-70); POSITIVE MORPHOLOGY YES; Platelet Count 211 K/mm3 (150-450); RBC Distribution Width CV 13.3 % (11.6-14.6); Red Blood Count 4.26 M/mm3 (4.2-5.4); White Blood Count 9.6 K/mm3 (4.4-11.0)
[2020-10-03 07:40] LABS: Differential Indicated SCAN CRITERIA MET
[2020-10-03 07:44] LABS: Anion Gap 4 (5-15); BUN 15 mg/dL (7-18); BUN/Creat Ratio 26.1 RATIO (10-20); Calcium,Total 8.7 mg/dL (8.5-10.1); Chloride 111 mmol/L (98-107); Creatinine, Serum 0.57 mg/dL (0.55-1.02); EST Glomerular Filtration Rate 113 mL/min (>60); Est Glom Filt Rate - Afr Amer 137 mL/min (>60); Estimated Creatinine Clearance 77.22 ml/min; Glucose 177 mg/dL (74-106); Potassium 4.1 mmol/L (3.5-5.1); Sodium Level 140 mmol/L (136-145)
[2020-10-03 08:39] VITALS: BP 151/73; PULSE 48; RESP 18; TEMP 36.6; O2SAT 92
[2020-10-03] MEDS: Acetaminophen 325 MG Tablet 650 MG PO (08:42)
[2020-10-03] MEDS: guaiFENesin/Codeine 5 ML UDC PO (08:42)
[2020-10-03] MEDS: Oxybutynin 5 MG Tablet PO (08:42)
[2020-10-03] MEDS: Enoxaparin 30 MG/0.3 ML Syringe SC (08:43)
[2020-10-03] MEDS: dexAMETHasone 4 MG Tablet 6 MG PO ×2 (08:43)
[2020-10-03] MEDS: Famotidine 20 MG Tablet PO (08:43)
[2020-10-03 09:05] VITALS: O2SAT 93
[2020-10-03 09:47] LABS: Differential Comment SCANNED; Reactive Lymphocyte 1+
[2020-10-03 10:15] VITALS: O2SAT 84
--- NOTE | 2020-10-03 11:23 | CASEMGMT ---
RN PETTY Note: Call to room. Intro role of CM to patient via phone. She states she is living with her son, has rollator she uses and family assists with any care needs. She uses [employer] for transportation and is calling her son for a ride home today. -discussed oxygen and reviewed list of providers [facility] with [facility]. Pt prefers [facility]. Requested oxygen testing and then will fax to [facility] with request for portable tank to be brought to hospital. -Patient does not have a primary care doctor. [facility]chure for [facility] given to her as well as local [facility] providers for PCP. -Per patient, no further care needs for home. Chika APPLE RN AC
--- NOTE | 2020-10-03 11:45 | DCINST_ITS ---
- Discharge Diagnoses Current Active Problems: Current Active and Chronic Problems (Last Updated 10/01/20 @ 05:[address] Wilfred Miller MD) SARS pneumonia (Acute) COVID-19 (Acute) You will use the following diet at home:: No restrictions Your food should be the consistency of: Regular Discharge Activity: Return to Normal Activity - ease back into a normal routine. Call your doctor if you observe: Fever of 101 or Higher, Shortness of breath Additional Instructions: Self isolate for at least 21 days since symptoms began AND at least one day (24 hours) have passed since resolution of fever without the use of fever-reducing agents AND improvement of symptoms (e.g., cough, shortness of breath) When around people in the same room, wear a face mask. Individuals also in the room should wear a mask. If possible, use a different bathroom and bedroom. Perform adequate hand hygiene. Avoid sharing dishes, glasses, etc. Family members with close contact with you and/or postive for COVID-19 should follow these instructions. Allergies/Adverse Reactions: Allergies epinephrine Allergy (Verified 09/30/20 20:10) Anaphylaxis Penicillins Adverse Reaction (Verified 09/30/20 20:10) NEEDS FOLLOW-UP Medications to take at Discharge Alendronate Sodium 70 mg PO SA 09/30/20 Atorvastatin Calcium [Lipitor] 20 mg PO QHS 09/30/20 Famotidine 20 mg PO BID 09/30/20 Oxybutynin [Ditropan] 5 mg PO BID 09/30/20 Loratadine 10 mg PO DAILY 10/01/20 Acetaminophen [Tylenol Tablet] 650 mg PO Q6H PRN PRN tablet 10/03/20 Apixaban [Eliquis] 2.5 mg PO BID #28 tab 10/03/20 Dexamethasone [Decadron] 6 mg PO DAILY #6 tab 10/03/20 Guaifenesin/Codeine [Robitussin AC] 5 ml PO Q6H PRN PRN #100 ml 10/03/20 Loperamide [Imodium] 2 mg PO Q2H PRN PRN capsule 10/03/20 The following prescriptions were given: Dexamethasone [Decadron] 6 mg PO DAILY #6 tab Transmission Status: Pending to [facility] Apixaban [Eliquis] 2.5 mg PO BID #28 tab Transmission Status: Pending to [facility] Guaifenesin/Codeine [Robitussin AC] 5 ml PO Q6H PRN PRN #100 ml PRN Reason: coughing fits Transmission Status: Sent to [facility] Primary Care Physician: Care Physician,No Primary [Primary Care Provider] - Please follow up with your Primary Care Physician in: establish a primary care physician and follow up in 2-3 weeks. Test Results: Test results from this visit will be discussed in further detail at your follow- up appointment, if applicable. Proposed Discharge Date: 10/03/20
--- NOTE | 2020-10-03 11:49 | PCM.DC.SUM ---
Discharge Date and Diagnosis - Problem List Patient Problems: Active and Suspected Problems (Last Updated 10/01/20 @ 05:[address] Wilfred Miller MD) SARS pneumonia (Acute) COVID-19 (Acute) Date of Admission: 09/30/20 Date of Discharge: 10/03/20 - Primary Discharge Diagnosis Acute Problems: Active Problems (Last Updated 10/01/20 @ 05:[address] Wilfred Miller MD) SARS pneumonia (Acute) COVID-19 (Acute) 1. COVID 19 pneumonia on dexa and rem 2. acute hypoxic respiratory insufficiency 2/2 above wean oxygen as tolerated 3. Diarrhea prior to arrival loperamide Hospital Course and Treatment Imaging Results: Clinical Impression(s) from Imaging Studies Chest X-Ray 09/30/20 21:36 IMPRESSION: Mild to moderate bilateral pneumonia, right greater than left. Electronically Signed: Carlos Salomon MD at 22:18 EST , Service support , Chest CTA 10/01/20 01:20 IMPRESSION: No demonstrated pulmonary embolism or arterial dissection. Ill-defined subpleural groundglass opacities are seen more prominent in the lung bases , may represent atypical pneumonia or viral pneumonia (COVID-19 ?). Electronically Signed: Ermelinda Esquivel, at 2:51 EST Tel , Service support , Operations: None Procedures: None Summary of Care Provided: The patient is a 64 year old F presents with 2-week history of malaise and shortness of breath. Patient diagnosed with COVID-19. Patient was started on dexamethasone and remdesivir. Overall her course slowly improved. Patient still does require oxygen and will require at rest as well as with activity at 4 L/min. Patient was explained that this is to be a slow recovery. No additional inpatient needs at this time. [] Patient Problems: Active and Suspected Problems (Last Updated 10/01/20 @ 05:[address] Wilfred Miller MD) SARS pneumonia (Acute) COVID-19 (Acute) - Physical Exam Vitals/I&O's: Vital Signs Temp Pulse Resp BP Pulse Ox 36.6 C 48 L 18 151/73 H 84 10/03/20 08:39 10/03/20 08:39 10/03/20 08:39 10/03/20 08:39 10/03/20 10:15 Oxygen Flow Rate (L/min) [ 3 AMBULATION with Oxygen] Oxygen Flow Rate (L/min) 2 Oxygen Delivery Method Nasal Cannula Weight: 70.335 kg Body Mass Index (BMI) 29.2 Intake and Output for Last 24 Hours 10/01/20 10/02/20 10/03/20 23:59 23:59 23:59 Intake Total 537.67 / 777.67 940 / 940 0 / 0 Output Total 800 / 800 Balance 537.67 / 777.67 140 / 140 0 / 0 General: Alert, No apparent distress HEENT: Atraumatic, Normocephalic Oral: Moist Mucosa, No Gingival or Mucosal Lesions/ Ulcerations Neck: No Nodes, Thyroid Normal Size and Texture Lungs: Clear to auscultation, Normal air movement, No rhonchi, No wheeze, No rales Cardiovascular: Regular rate, Regular Rhythm, Normal S1, Normal S2, No murmurs Abdomen: Bowel Sounds Present, Soft, Non Tender, Non-Distended, No Hepato-splenomegaly Extremities: No edema, No Calf Tenderness Skin: No rashes, No breakdown Microbiology Past 72 Hours 09/30/20 20:44 Blood Culture (Wb) - Anticubital Right Blood Culture - Preliminary No growth in 48 hours. 09/30/20 20:20 Blood Culture (Wb) - Anticubital Left Blood Culture - Preliminary No growth in 48 hours. 09/30/20 21:50 Urine, Clean Catch Urine Culture - Final Mixed Gram Positive Organisms Laboratory Results 10/03/20 06:24: WBC 9.6, RBC 4.26, Hgb 12.4, Hct 36.7 L, MCV 86.2, MCH 29.1, MCHC 33.8, RDW Std Deviation 42.0, RDW Coeff of Antonio 13.3, Plt Count 211, MPV 10.6, Immature Gran % (Auto) 1.400 H, Neut % (Auto) 81.3 H, Lymph % (Auto) 11.8 L, [place] % (Auto) 5.3, Eos % (Auto) 0.0, Baso % (Auto) 0.2, Absolute Neuts (auto) 7.8 H, Absolute Lymphs (auto) 1.13, Nucleated RBC % 0, Differential Comment SCANNED, Reactive Lymphocytes 1+ 10/03/20 06:24: Sodium 140, Potassium 4.1, Chloride 111 H, Carbon Dioxide 25.0, Anion Gap 4 L, BUN 15, Creatinine 0.57, Estim Creat Clear Calc 77.22, Est GFR (MDRD) Af Amer 137, Est GFR (MDRD) Non-Af 113, BUN/Creatinine Ratio 26.1 H, Glucose 177 H, Calcium 8.7 Current Medications Acetaminophen (Acetaminophen 325 Mg Tablet) 650 mg PO Q6H PRN PRN PRN Reason: Pain Score 1-10/Temp > 100.7 F Last Admin: 10/03/20 08:42 Dose: 650 mg Documented by: Albuterol Sulfate (Albuterol Sulfate 8 Gm Inhaler (60 Puffs)) 2 puff INHALATION Q6H PRN PRN PRN Reason: SOB/WHEEZING Atorvastatin Calcium (Atorvastatin Calcium 20 Mg Tablet) 20 mg PO QHS [facility] Last Admin: 10/02/20 22:06 Dose: 20 mg Documented by: Dexamethasone (Dexamethasone 4 Mg Tablet) 6 mg PO DAILY [facility] Last Admin: 10/03/20 08:43 Dose: 6 mg Documented by: Enoxaparin Sodium (Enoxaparin 30 Mg/0.3 Ml Syringe) 30 mg SC BID [facility] Last Admin: 10/03/20 08:43 Dose: 30 mg Documented by: Famotidine (Famotidine 20 Mg Tablet) 20 mg PO DAILY [facility] Last Admin: 10/03/20 08:43 Dose: 20 mg Documented by: Guaifenesin/Codeine Phosphate (Guaifenesin/Codeine 5 Ml Udc) 5 ml PO Q6H PRN PRN PRN Reason: coughing fits Last Admin: 10/03/20 08:42 Dose: 5 ml Documented by: Sodium Chloride () 250 mls @ 15 mls/hr IV .[id number] PRN PRN Reason: Saline Flush Sodium Chloride () 250 mls @ 15 mls/hr IV .[id number] PRN PRN Reason: Additional IVPB Infusion Influenza Virus Vaccine Quadrival (Influenza Vaccine (6mos+)/Pf 0.5 Ml Syringe) 0.5 ml IM .ONCE ONE Stop: 12/12/20 11:47 Loperamide HCl (Loperamide 2 Mg Capsule) 2 mg PO Q2H PRN PRN PRN Reason: Diarrhea Last Admin: 10/01/20 14:27 Dose: 2 mg Documented by: Melatonin (Melatonin 3 Mg Tablet) 3 mg PO QHS PRN PRN PRN Reason: INSOMNIA Miscellaneous Information (Inhaler, Assist Devices 1 Each Spacer) 1 each INHALATION Q6H PRN PRN PRN Reason: SOB/WHEEZING Ondansetron HCl (Ondansetron 4 Mg/2 Ml Vial) 4 mg IV Q8H PRN PRN PRN Reason: NAUSEA/VOMITING Oxybutynin Chloride (Oxybutynin 5 Mg Tablet) 5 mg PO BID [facility] Last Admin: 10/03/20 08:42 Dose: 5 mg Documented by: Sodium Chloride (0.9% Saline Lock 10 Ml Syringe) 10 - 40 ml IV UD PRN PRN Reason: SALINE FLUSH Last Admin: 10/01/20 22:26 Dose: 20 ml Documented by: Sodium Chloride (0.9% Saline Lock 10 Ml Syringe) 10 - 40 ml IV UD PRN PRN Reason: SALINE FLUSH Discharge Diet: No Restrictions Discharge Activity: Return to Normal Activity - ease back into a normal routine. Call your doctor if you observe: Fever of 101 or Higher, Shortness of breath Home Medications: Medications to take at Discharge Alendronate Sodium 70 mg PO SA 09/30/20 Atorvastatin Calcium [Lipitor] 20 mg PO QHS 09/30/20 Famotidine 20 mg PO BID 09/30/20 Oxybutynin [Ditropan] 5 mg PO BID 09/30/20 Loratadine 10 mg PO DAILY 10/01/20 Acetaminophen [Tylenol Tablet] 650 mg PO Q6H PRN PRN tablet 10/03/20 Apixaban [Eliquis] 2.5 mg PO BID #28 tab 10/03/20 Dexamethasone [Decadron] 6 mg PO DAILY #6 tab 10/03/20 Guaifenesin/Codeine [Robitussin AC] 5 ml PO Q6H PRN PRN #100 ml 10/03/20 Loperamide [Imodium] 2 mg PO Q2H PRN PRN capsule 10/03/20 Following Prescriptions Were Given to Patient: Dexamethasone [Decadron] 6 mg PO DAILY #6 tab Transmission Status: Pending to [facility] Apixaban [Eliquis] 2.5 mg PO BID #28 tab Transmission Status: Pending to [facility] Guaifenesin/Codeine [Robitussin AC] 5 ml PO Q6H PRN PRN #100 ml PRN Reason: coughing fits Transmission Status: Sent to [facility] Primary Care Physician: Care Physician,No Primary [Primary Care Provider] - Please follow up with your Primary Care Physician in: establish a primary care physician and follow up in 2-3 weeks. Disposition: Home Minutes spent on discharge:: 32 Patient Condition:: Fair Medical Necessity - Tobacco Use Smoking Status: Never smoker Meaningful Use Info Meaningful Use Diagnoses (Choose all that apply): None applicable Inpatient E&M: [id number] [facility] Hosp
[2020-10-03 11:52] VITALS: O2SAT 85; O2SAT 89; O2SAT 92
--- NOTE | 2020-10-03 13:20 | CASEMGMT ---
RN CM Note oxygen information faxed to [facility] and call to emergency line @ . Information given and they will bring portable tank to [facility]. Phone # given to nurse to call on discharge for [employer] driver to bring O2 set up to patient's home. Patient may not be reliable for calling when she goes home. Chika BRAVON NILDA AC
--- NOTE | 2020-10-03 14:45 | NURSING ---
Flu vac given early per MD order due to patient discharge home.
--- NOTE | 2020-10-05 13:34 | CASEMGMT ---
[facility] ED PHONE CALL DC DATE: 10/03/2020 DC DISPOSITION: Home with oxygen DC DIAGNOSIS: SARS COVID 2 Intro role of CM to patient via phone. Patient has her home oxygen equipment and states she is feeling improved. She does not have a pulse oximeter at home. [facility]OVE let her know they are available @ [facility] and her son can pick one up for her. No new concerns and no care needs. Chika APPLE RN ACM
== END 2020-10-03 15:15 | disposition home or self-care (01) | DRG 177 ==
LOC: ED 22:35 → MS2 23:38
PROVIDERS: Admitting Provider Hospitalist; Emergency Provider Student in an Organized Health Care Education/Training Program; Referring Provider Hospitalist
DX: U07.1 COVID-19 (principal); J12.89 Other viral pneumonia; R09.02 Hypoxemia; R06.89 Other abnormalities of breathing; R19.7 Diarrhea, unspecified; Z87.891 Personal history of nicotine dependence; E87.6 Hypokalemia; M85.80 Other specified disorders of bone density and structure, unspecified site; E78.5 Hyperlipidemia, unspecified; N32.81 Overactive bladder; Z23 Encounter for immunization
CPT/HCPCS: 36415; 71045; 71275; 80048; 80053; 81001; 83605; 83735; 84145; 84484; 85025; 85379; 85610; 85730; 87040; 87086; 87088; 87635; 93005; 99284; G0008; J7050; Q9967; 90686; A4216; U0002

== ENCOUNTER → 2021-02-11 11:00 | Outpatient (CLI) | payer MEDICARE, MEDICAID, SELFPAY ==
[2020-11-12 11:51] VITALS: BMI 30.4
[2021-02-11 13:32] LABS: Free T3 2.5 pg/mL (2.18-3.98); T4 Free Direct 0.97 ng/dL (0.76-1.46); Thyroid Stim Hormone (TSH) 1.16 uIU/mL (0.358-3.74)
== END ==
PROVIDERS: PCP Family Medicine; Referring Provider Internal Medicine Endocrinology, Diabetes & Metabolism; Visit Provider Internal Medicine Endocrinology, Diabetes & Metabolism
DX: E05.00 Thyrotoxicosis with diffuse goiter without thyrotoxic crisis or storm (principal); E07.9 Disorder of thyroid, unspecified; M85.80 Other specified disorders of bone density and structure, unspecified site
CPT/HCPCS: 36415; 84439; 84443; 84481

== ENCOUNTER → 2021-02-24 09:25 | Outpatient (CLI) | payer MEDICARE, MEDICAID, SELFPAY ==
[2020-11-12 11:51] VITALS: BMI 30.4
[2021-02-18 12:18] VITALS: BMI 31.3
--- NOTE | 2021-02-24 09:28 | BI_ITS ---
MAMMOGRAPHY - BILATERAL SCREENING REASON FOR EXAM: Female, 65 years old. Routine annual screening examination. PERTINENT HISTORY: Non-contributory. TECHNIQUE: Digital bilateral breast sue (3D mammographic acquisition) in the CC and MLO projections. 2-D mediolateral oblique (MLO) and craniocaudad (CC) views of both breasts were obtained. CAD: Full Field Digital Mammography with Computer Added Detection was performed. COMPARISON: Comparison is made with prior outside examination dated 02/07/2019. FINDINGS: Breast Composition: The breasts are almost entirely fatty. There are no dominant masses or suspicious calcifications. Stable small benign appearing bilateral axillary lymph nodes. Stable scattered calcifications in both breasts more prominent on the right side. No other significant abnormalities are identified. There has been no significant change since the prior study. BI/SCRN MAMM (CAD)W/SUE BILAT IMPRESSION: Stable bilateral screening mammogram. Yearly follow-up mammogram recommended. (A) ASSESSMENT CATEGORY: BIRADS Category 2: Benign. A letter regarding these results will be sent to the patient by the facility within 30 days. Approximately 10% of breast cancers are not detected by mammography. A normal mammogram should not delay biopsy of a clinically suspicious abnormality. [id number] Electronically Signed: Gigi Johnston MD at 13:42 EDT , Service support ,
--- NOTE | 2021-02-24 09:52 | BD_ITS ---
STUDY: DUAL ENERGY X-RAY ABSORPTIOMETRY / DXA REASON FOR EXAM: Female, 65 years old. Osteopenia TECHNIQUE: Bone Mineral Density (BMD) measurements of lumbar spine and bilateral hips were obtained. COMPARISON: None. FINDINGS: Lumbar Spine (L1-L4): g/cm2 (1.149) / T-score (-0.2) / Z-score (1.3) Findings are suggestive of normal bone density with a low fracture risk. Left Femur Total: g/cm2 (0.993) / T-score (-0.1) / Z-score (1.0) Left Femoral Neck: g/cm2 (0.926) / T-score (-0.8) / Z-score (0.6) Right Femur Total: g/cm2 (1.050) / T-score (0.3) / Z-score (1.4) Right Femoral Neck: g/cm2 (0.921) / T-score (0.8) / Z-score (0.5) BD/Dexa Bone Density Study IMPRESSION: The patient is considered normal as outlined below according to World Isaiah Organization (WHO) criteria with a low fracture risk. Reference Information: The T-score is the number of standard deviations above or below the standard which is normal for young adults at their peak bone mineral density. The World Health Organization (WHO) interprets the T-scores as follows: Above -1 Normal bone density Between -1 and -2.5 Osteopenia Equal to / or below -2.5 Osteoporosis As a practical clinical guideline, osteopenia may be graded as follows: Mild -1 through -1.5 Moderate -1.6 through -2.0 Severe -2.1 through -2.4 The Z-score is the number of standard deviations above or below age-matched controls. A Z-score of less than -1.5 would be considered abnormal. References: 1. NIH Osteoporosis and Related Bone Diseases www osteo.org 2. International Society for Clinical Densitometry www iscd.org 3. National Osteoporosis Foundation www nof.org Electronically Signed: Gigi Johnston MD at 12:56 EDT , Service support ,
== END ==
PROVIDERS: PCP Family Medicine; Referring Provider Internal Medicine Endocrinology, Diabetes & Metabolism; Visit Provider Internal Medicine
DX: M85.89 Other specified disorders of bone density and structure, multiple sites (principal); Z12.31 Encounter for screening mammogram for malignant neoplasm of breast; E05.00 Thyrotoxicosis with diffuse goiter without thyrotoxic crisis or storm; M85.80 Other specified disorders of bone density and structure, unspecified site
CPT/HCPCS: 77063; 77067; 77080

== ENCOUNTER → 2021-02-26 11:39 | Outpatient (CLI) | payer MEDICARE, MEDICAID, SELFPAY ==
[2021-02-26 10:51] VITALS: BMI 31.3
[2021-02-26 15:09] LABS: Absolute Lymphocyte Count 1.79 X10^3/uL (0.83-4.51); Absolute Neutrophil Count 3.9 X10^3/uL (2.0-7.7); Basophil# 0.01 X10^3/uL; Basophil% 0.2 % (0-1); Eosinophils% 1.6 % (0-5); Hematocrit 44.1 % (37-47); Hemoglobin 14.3 g/dL (12.0-15.0); Lymphocyte # 1.79 X10^3/ul (0.83-4.51); Lymphocyte % 28.8 % (19-41); Mean Corp Hgb Conc 32.4 g/dL (32-36); Mean Corpuscular Volume 86.5 fL (81-99); Mean Platelet Vol. 9.7 fl (6.2-12.0); Monocyte# 0.42 X10^3/uL; Monocyte% 6.8 % (0-10); NRBC Flagged by Analyzer 0 % (0-5); Neutrophil # 3.89 X10^3/uL (2.7-7.7); Neutrophil % 62.4 % (47-70); Platelet Count 201 K/mm3 (150-450); RBC Distribution Width CV 13.4 % (11.6-14.6); RBC Distribution Width SD 42.5 fl (35.1-43.9); White Blood Count 6.2 K/mm3 (4.4-11.0)
[2021-02-26 15:23] LABS: Vitamin B12 1758 pg/mL (211-911)
[2021-02-26 15:26] LABS: Hemoglobin A1c 5.7 % (3.8-5.6)
[2021-02-26 15:27] LABS: ALB/GLOB Ratio 1.1 RATIO (0.9-2.4); AST(SGOT) 17 U/L (15-37); Alanine Aminotransfer ALT/SGPT 23 U/L (13-56); Albumin, Serum 3.8 g/dL (3.2-5.0); Alkaline Phosphatase 107 U/L (45-117); Anion Gap 4 (5-15); BUN 14 mg/dL (7-18); BUN/Creat Ratio 19.7 RATIO (10-20); Calcium,Total 9.2 mg/dL (8.5-10.1); Chloride 106 mmol/L (98-107); Cholesterol 173 mg/dL (200); Creatinine, Serum 0.71 mg/dL (0.55-1.02); EST Glomerular Filtration Rate 88 mL/min (>60); Est Glom Filt Rate - Afr Amer 107 mL/min (>60); Globulin 3.5 g/dL (2.2-4.2); Glucose 99 mg/dL (74-106); High Density Lipoprotein 53 mg/dL; Potassium 3.9 mmol/L (3.5-5.1); Protein, Total 7.3 g/dL (6.4-8.2); Sodium Level 140 mmol/L (136-145); Triglycerides 199 mg/dL; Very Low Density Lipoprotein 40 mg/dL (5-40)
== END ==
PROVIDERS: PCP Internal Medicine; Referring Provider Internal Medicine; Visit Provider Internal Medicine
DX: E53.8 Deficiency of other specified B group vitamins (principal); E55.9 Vitamin D deficiency, unspecified; Z86.69 Personal history of other diseases of the nervous system and sense organs; J12.81 Pneumonia due to SARS-associated coronavirus; E05.20 Thyrotoxicosis with toxic multinodular goiter without thyrotoxic crisis or storm; M85.80 Other specified disorders of bone density and structure, unspecified site; R73.9 Hyperglycemia, unspecified
CPT/HCPCS: 36415; 80053; 80061; 82306; 82607; 83036; 85025

== ENCOUNTER → 2021-07-15 14:03 | Outpatient (CLI) | payer MEDICARE, MEDICAID, SELFPAY ==
[2021-07-15 15:22] LABS: Vitamin B12 1382 pg/mL (211-911); Vitamin D,25 Hydroxy 25.6 ng/mL
[2021-07-15 15:23] LABS: Free T3 2.4 pg/mL (2.18-3.98); T4 Free Direct 0.79 ng/dL (0.76-1.46); Thyroid Stim Hormone (TSH) 9.82 uIU/mL (0.358-3.74)
== END ==
PROVIDERS: PCP Internal Medicine; Referring Provider Internal Medicine Endocrinology, Diabetes & Metabolism; Visit Provider Internal Medicine Endocrinology, Diabetes & Metabolism
DX: E53.8 Deficiency of other specified B group vitamins (principal); E05.90 Thyrotoxicosis, unspecified without thyrotoxic crisis or storm; U07.1 COVID-19; E55.9 Vitamin D deficiency, unspecified
CPT/HCPCS: 36415; 82306; 82607; 84439; 84443; 84481

== ENCOUNTER → 2021-09-02 10:36 | Outpatient (CLI) | payer MEDICARE, MEDICAID, SELFPAY ==
[2021-09-02 12:56] LABS: Free T3 2.7 pg/mL (2.18-3.98); T4 Free Direct 1.01 ng/dL (0.76-1.46)
== END ==
PROVIDERS: PCP Internal Medicine; Referring Provider Internal Medicine Endocrinology, Diabetes & Metabolism; Visit Provider Internal Medicine Endocrinology, Diabetes & Metabolism
DX: E05.90 Thyrotoxicosis, unspecified without thyrotoxic crisis or storm (principal)
CPT/HCPCS: 36415; 84439; 84443; 84481

== ENCOUNTER → 2022-03-23 | Outpatient (CLI) | payer MEDICARE, MEDICAID, SELFPAY ==
--- NOTE | 2022-03-23 13:16 | CT_ITS ---
STUDY: CT BRAIN WITHOUT CONTRAST REASON FOR EXAM: Female, 66 years old. Head trauma couple months ago, increased HARP now RADIATION DOSAGE (If Supplied By Facility): CTDIvol = ( 44.99 ) mGy, DLP = ( 711.75 ) mGycm TECHNIQUE: Transaxial CT imaging of the brain was performed without administration of intravenous contrast material. Individualized dose optimization techniques were used for this CT. COMPARISON: No relevant priors. FINDINGS: Normal soft tissue structures. There is hyperostosis frontalis internus. Normal size ventricles and extra-axial spaces for the patient''s age. Normal white matter tracts of the cerebral hemispheres. Normal basal ganglia and thalami. Normal brainstem. Normal cerebellum. There is no intracranial hemorrhage. There are no findings of an acute ischemic infarction. Atherosclerotic plaque formation of the vertebral arteries and cavernous portions of the internal carotid arteries bilaterally. Normal visualized paranasal sinuses. CT/Brain/Head without Contrast IMPRESSION: Normal unenhanced CT scan of the brain. Electronically Signed: Gigi Johnston MD at 13:49 EDT ,
== END | disposition home or self-care (01) ==
LOC: CT 13:14
PROVIDERS: PCP Internal Medicine; Referring Provider Internal Medicine; Visit Provider Internal Medicine
DX: G44.309 Post-traumatic headache, unspecified, not intractable (principal); S09.90XS Unspecified injury of head, sequela
CPT/HCPCS: 70450

== ENCOUNTER 2022-05-02 16:59 | Emergency (ER) | payer MEDICARE, MEDICAID, SELFPAY ==
[2022-05-02 17:00] VITALS: BP 143/78; PULSE 71; RESP 16; TEMP 36.3; O2SAT 96; BMI 34.3
[2022-05-02 17:27] VITALS: BP 140/71; PULSE 70; RESP 16; O2SAT 98
[2022-05-02] MEDS: Ondansetron 4 MG/2 ML Vial IV (18:16)
[2022-05-02] MEDS: 0.9% Normal Saline 1,000 ML 1000 ML IV (18:16)
[2022-05-02 18:17] VITALS: BP 143/104; PULSE 63; RESP 14; O2SAT 98
[2022-05-02 18:59] LABS: ALB/GLOB Ratio 0.9 RATIO (0.9-2.4); AST(SGOT) 26 U/L (15-37); Alanine Aminotransfer ALT/SGPT 20 U/L (13-56); Albumin, Serum 3.4 g/dL (3.2-5.0); Alkaline Phosphatase 123 U/L (45-117); Anion Gap 6 (5-15); BUN 14 mg/dL (7-18); BUN/Creat Ratio 19.1 RATIO (10-20); Calcium,Total 9.6 mg/dL (8.5-10.1); Chloride 105 mmol/L (98-107); Creatinine, Serum 0.73 mg/dL (0.55-1.02); EST Glomerular Filtration Rate 85 mL/min (>60); Est Glom Filt Rate - Afr Amer 102 mL/min (>60); Estimated Creatinine Clearance 94.77 ml/min; Globulin 3.8 g/dL (2.2-4.2); Glucose 126 mg/dL (74-106); Potassium 4.4 mmol/L (3.5-5.1); Protein, Total 7.2 g/dL (6.4-8.2); Sodium Level 140 mmol/L (136-145)
[2022-05-02 19:22] LABS: Absolute Neutrophil Count 5.2 X10^3/uL (2.0-7.7); Basophil# 0.01 X10^3/uL; Basophil% 0.1 % (0-1); Eosinophil# 0.04 X10^3/uL; Eosinophils% 0.5 % (0-5); Hematocrit 42.8 % (37-47); Hemoglobin 14.1 g/dL (12.0-15.0); Lymphocyte % 21.9 % (19-41); Mean Corp Hgb Conc 32.9 g/dL (32-36); Mean Corpuscular Hgb 28.8 pg (27.0-32.0); Mean Corpuscular Volume 87.5 fL (81-99); Mean Platelet Vol. 10.2 fl (6.2-12.0); Monocyte# 0.46 X10^3/uL; Monocyte% 6.3 % (0-10); NRBC Flagged by Analyzer 0 % (0-5); Neutrophil # 5.16 X10^3/uL (2.7-7.7); Neutrophil % 70.9 % (47-70); Platelet Count 190 K/mm3 (150-450); RBC Distribution Width CV 13.3 % (11.6-14.6); RBC Distribution Width SD 42.9 fl (35.1-43.9); Red Blood Count 4.89 M/mm3 (4.2-5.4); White Blood Count 7.3 K/mm3 (4.4-11.0)
[2022-05-02 21:00] VITALS: BP 139/94; PULSE 91
--- NOTE | 2022-05-02 21:37 | EDS_ITS ---
HPI History of Present Illness Chief Complaint: General Illness Informant: patient Onset/Context/Timing Onset: Days Context: Gradual Onset Timing: Intermittent Current Severity: Mild Maximum Severity: Mild Narrative Narrative: 66-year-old female history of hyperglycemia but currently not on diabetic medications. Says she has not felt well last couple days with some nausea and vomiting. Said her blood sugars were as high as 300. She denies any fever. No chest pain. No abdominal pain. No shortness of breath. No hematemesis. No trouble urinating or dysuria. No diarrhea. No fever. Patient thinks it may be her nurse because she is recently received some bad news and said it is working on her mind. Prior similar symptoms: No Recent Illness/Hospitalization: No PFSH PFSH Medical History Arthritis Blood clot in vein Cataract Diabetes Factor 5 Leiden mutation, heterozygous Goiter H/O: pneumonia History of blood clots History of macular degeneration Hyperlipidemia Hypertension Hyperthyroidism Macular degeneration Osteoporosis Vitamin B12 deficiency Home Medications loratadine 10 mg tablet 10 mg PO DAILY ALLERGIES 10/01/20 [History Last Taken Unknown] acetaminophen 325 mg tablet 650 mg PO Q6H PRN PRN Pain Score 1-10/Temp > 100.7 F 10/03/20 [Rx Last Taken Unknown] loperamide 2 mg capsule 2 mg PO Q2H PRN PRN Diarrhea 10/03/20 [Rx Last Taken Unknown] calcium carbonate 600 mg-vitamin D3 20 mcg (800 unit) chewable tablet (Caltrate 600 plus D) 1 tab PO BID 02/18/21 [History Last Taken Unknown] coenzyme Q10 200 mg capsule (Co Q-10) 200 mg PO DAILY 02/18/21 [History Last Taken Unknown] dexametha topical 02/18/21 [History Last Taken Unknown] mecobalamin (vitamin B12) 1,000 mcg disintegrating tablet,sublingual 1,000 mcg sublingual BID 02/18/21 [History Last Taken Unknown] melatonin 5 mg capsule 5 mg PO QHS PRN PRN Sleep 02/18/21 [History Last Taken Unknown] multivitamin 1 tab PO DAILY 02/18/21 [History Last Taken Unknown] omega-3 fatty acids 1,000 mg capsule 1,000 mg PO BID 02/18/21 [History Last Taken Unknown] vitamins A,C,Z-lslr-zzhkya 14,320 unit-226 mg-200 unit capsule (PreserVision AREDS) 1 cap PO BID 02/18/21 [History Last Taken Unknown] atorvastatin 20 mg tablet 20 mg PO QHS CHOLESTEROL #90 tabs 08/23/21 [Rx Last Taken Unknown] famotidine 20 mg tablet 20 mg PO BID GERD #180 tabs 08/26/21 [Rx Last Taken Unknown] oxybutynin chloride 5 mg tablet 5 mg PO BID #180 tabs 08/26/21 [Rx Last Taken Unknown] methimazole 5 mg tablet 5 mg PO .Mon-Sat, skip Monday #72 tabs 09/03/21 [Rx Last Taken Unknown] triamcinolone acetonide 0.1 % topical cream 1 applic topical BID #30 grams 03/07/22 [Rx Last Taken Unknown] ondansetron 4 mg disintegrating tablet 4 mg PO Q6H PRN nausea and vomiting #7 tabs 05/02/22 [Rx Last Taken Unknown] Allergy/AdvReac Type Severity Reaction Status Date / Time epinephrine Allergy Anaphylaxis Verified 03/07/22 11:24 Penicillins AdvReac NEEDS Verified 03/07/22 11:24 FOLLOW-UP Family History Grandmother Diabetes Mother Diabetes CVA (cerebral vascular accident) Father Heart disease Alzheimer disease Aunt Cancer Other Asthma Colon cancer Myocardial infarction Thyroid disorder Surgical History History of bladder repair surgery History of colonoscopy with polypectomy History of hysterectomy Social History Smoking Status: Never smoker alcohol intake: never substance use type: does not use what type of physical activity do you participate in: walking frequency: daily ROS ROS ED ROS Narrative Nausea and vomiting. General malaise. Review of Systems ROS Unobtainable: Denies due to encephalopathy Constitutional Constitutional ED: Denies chills Eyes Eyes: Denies blurry vision ENT ENT ED: Denies ear pain Respiratory/Chest Respiratory/Chest: Denies cough or dyspnea Gastrointestinal Gastrointestinal: Reports nausea and vomiting; Denies abdominal pain, constipation, diarrhea or melena Genitourinary Genitourinary ED: Denies dysuria or hematuria Musculoskeletal Musculoskeletal: Denies arthralgias Integumentary Denies abscess Neurologic Neurologic: Denies headache(s) Psychiatric Psychiatric: Denies anxiety Endocrine Endocrinology: Denies cold intolerance Hematologic/Lymphatic Hematologic/Lymphatic: Reports none Allergic/Immunologic Allergic/Immunologic ED: Denies mouth swelling or tongue swelling EXAM Physical Exam Narrative Exam Narrative: 66-year-old female no acute distress. Vital signs stable afebrile. H EENT exam unremarkable. Neck nontender. Lungs clear to auscultation. Heart regular rhythm no murmur. Abdomen soft nontender normal bowel sounds no peritoneal signs. Moving all 4 extremities. Calves are nontender without edema. Neurologically she is awake alert with no focal motor deficits. Const Vital Signs: 05/02/22 17:00 05/02/22 17:27 05/02/22 17:27 Temperature 97.4 F L Temperature Source Temporal Pulse Rate 71 70 Respiratory Rate 16 16 Respiratory Effort Normal Respiratory Pattern Normal Blood Pressure 143/78 H 140/71 H Blood Pressure Mean 99 94 Pulse Ox 96 98 Oxygen Delivery Method Room Air Room Air 05/02/22 18:17 Temperature Temperature Source Pulse Rate 63 Respiratory Rate 14 Respiratory Effort Respiratory Pattern Blood Pressure 143/104 H Blood Pressure Mean 117 Pulse Ox 98 Oxygen Delivery Method Room Air Positive well nourished, well developed and obese; Negative for cachectic, contractures or unkempt General Appearance ED: well developed; Negative for unkempt, cachectic or contractures Nutritional Appearance: obese; Negative for cachectic HEENT Reports moist mucous membranes; Denies dry mucous membranes Negative for trauma or tenderness Mouth ED: No dry mucous membranes Mouth: No dry mucous membranes Eyes PERRL and EOMs intact bilaterally General Eye ED: Negative for pale conjunctiva or scleral icterus Neck no lymphadenopathy, supple and no JVD General: Negative for tenderness Lymph Lymphatic: Negative for other Chest Wall inspection of chest normal and palpation of chest normal Resp normal respiratory effort and clear to auscultation bilaterally Effort and Inspection: Negative for retractions Auscultation: Negative for rales, rhonchi or wheezes Cardio regular rate, regular rhythm, S1 normal heart sound, S2 normal heart sound and no murmurs Rate: Negative for bradycardia Rhythm: Negative for abnormal rhythm GI normal to inspection, nondistended, normoactive bowel sounds, non-tender, non- distended and no masses Inspection: Negative for abdominal distention Auscultation: normoactive bowel sounds Palpation: soft; Negative for tender, guarding, splenomegaly or mass Back/Spine no CVA tenderness General Back: Negative for CVA tenderness Cervical Spine: Negative for cervical spine tenderness Thoracic Spine / Upper Back: Negative for thoracic spinal tenderness Extremity normal to inspection General Extremety ED: Negative for edema or tenderness General Extremity: Negative for edema Neuro oriented x3 Sensorium / Orientation: alert; Negative for orientation impaired, lethargic or stuporous Motor Exam: strength 5/5 throughout Psych Appearance: Negative for unkempt Attitude: No agitated Mood & Affect: anxious; Negative for depressed Skin no rashes or lesions noted Rashes: No rashes noted Trauma: Negative for abrasion Wounds: Negative for wounds noted MDM MDM MDM Narrative Medical decision making narrative: 66-year-old malaise. Exam is benign. Screening labs being obtained. Repeat exam patient doing well at 9:44 PM. She will be discharged to home. Outpatient follow-up. Patient was treated with Zofran and her nausea is resolved. Lab Data Attestation: I reviewed the patient's lab results. Lab results narrative: CBC normal. White count of 7. H&H of 14 and 42. Normal platelets. Elect rolytes gap of 6 normal BUN and creatinine. Liver enzymes normal. Glucose 126. Labs: Laboratory Results - last 24 hr 05/02/22 05/02/22 18:15 18:15 WBC 7.3 RBC 4.89 Hgb 14.1 Hct 42.8 MCV 87.5 MCH 28.8 MCHC 32.9 RDW Std Deviation 42.9 RDW Coeff of Antonio 13.3 Plt Count 190 MPV 10.2 Immature Gran % (Auto) 0.300 Neut % (Auto) 70.9 H Lymph % (Auto) 21.9 [place] % (Auto) 6.3 Eos % (Auto) 0.5 Baso % (Auto) 0.1 Absolute Neuts (auto) 5.2 Absolute Lymphs (auto) 1.60 Nucleated RBC % 0 Sodium 140 Potassium 4.4 Chloride 105 Carbon Dioxide 29.0 Anion Gap 6 BUN 14 Creatinine 0.73 Estim Creat Clear Calc 94.77 Est GFR (MDRD) Af Amer 102 Est GFR (MDRD) Non-Af 85 BUN/Creatinine Ratio 19.1 Glucose 126 H Calcium 9.6 Total Bilirubin 0.40 AST 26 ALT 20 Alkaline Phosphatase 123 H Total Protein 7.2 Albumin 3.4 Globulin 3.8 Albumin/Globulin Ratio 0.9 Discharge Plan Triage Chief Complaint: General Illness ED Provider: Tirso Morillo Dx/Rx/DC Orders Clinical Impression: Nausea & vomiting, Malaise Instructions: Nausea Vomit Control Prescriptions: New ondansetron 4 mg tablet,disintegrating 4 mg PO Q6H PRN (Reason: nausea and vomiting) Qty: 7 0RF No Action mecobalamin (vitamin B12) 1,000 mcg tablet,disintegrating 1,000 mcg sublingual BID Rx Instructions: place tablet under tongue and allow to dissolve for at least30 secs before swallowing melatonin 5 mg capsule 5 mg PO QHS PRN PRN (Reason: Sleep) omega-3 fatty acids 1,000 mg capsule 1,000 mg PO BID coenzyme Q10 [Co Q-10] 200 mg capsule 200 mg PO DAILY PreserVision AREDS 14,320-226-200 [id number]-[id number] capsule 1 cap PO BID multivitamin Tablet 1 tab PO DAILY dexametha topical Caltrate 600 plus D 600 mg (1,500 mg)-800 unit tablet,chewable 1 tab PO BID triamcinolone acetonide 0.1 % cream 1 applic topical BID Qty: 30 0RF Rx Instructions: Apply thin layer to affected areas twice daily x 5 to 7 days. loratadine 10 MG tablet 10 mg PO DAILY acetaminophen 325 MG tablet 650 mg PO Q6H PRN PRN (Reason: Pain Score 1-10/Temp > 100.7 F) 0RF loperamide 2 MG capsule 2 mg PO Q2H PRN PRN (Reason: Diarrhea) 0RF atorvastatin 20 mg tablet 20 mg PO QHS Qty: 90 3RF famotidine 20 mg tablet 20 mg PO BID Qty: 180 3RF oxybutynin chloride 5 mg tablet 5 mg PO BID Qty: 180 3RF methimazole 5 mg tablet 5 mg PO .Mon-Sat, skip Monday Qty: 72 1RF Primary Care Provider: Tea Lobato Referrals: Tea Lobato MD [Primary Care Provider] - 3-5 Days if not improving Activity Restrictions/Additional Instructions: Plenty of fluids and rest. Follow-up with your doctor if not. Zofran as needed for nausea. Your labs were normal. Disposition Disposition: Home, Self Care
== END 2022-05-02 21:54 | disposition home or self-care (01) ==
PROVIDERS: Emergency Provider Emergency Medicine; PCP Internal Medicine; Visit Provider Emergency Medicine
DX: R11.2 Nausea with vomiting, unspecified (principal); R53.81 Other malaise; E78.5 Hyperlipidemia, unspecified; E66.9 Obesity, unspecified; Z79.899 Other long term (current) drug therapy
CPT/HCPCS: 80053; 85025; 96361; 96374; 99282; J7030; J2405

== ENCOUNTER → 2022-08-18 | Outpatient (CLI) | payer MEDICARE, MEDICAID, SELFPAY ==
[2022-08-18 15:29] LABS: AST(SGOT) 22 U/L (15-37); Alanine Aminotransfer ALT/SGPT 24 U/L (13-56); Albumin, Serum 3.8 g/dL (3.2-5.0); Alkaline Phosphatase 133 U/L (45-117); Anion Gap 4 (5-15); BUN 14 mg/dL (7-18); BUN/Creat Ratio 19.2 RATIO (10-20); Chloride 108 mmol/L (98-107); Cholesterol 196 mg/dL (200); Creatinine, Serum 0.73 mg/dL (0.55-1.02); EST Glomerular Filtration Rate 85 mL/min (>60); Est Glom Filt Rate - Afr Amer 103 mL/min (>60); Free T3 2.7 pg/mL (2.18-3.98); Globulin 3.8 g/dL (2.2-4.2); Glucose 95 mg/dL (74-106); High Density Lipoprotein 50 mg/dL; Protein, Total 7.6 g/dL (6.4-8.2); Sodium Level 140 mmol/L (136-145); T4 Free Direct 0.99 ng/dL (0.76-1.46); Thyroid Stim Hormone (TSH) 3.24 uIU/mL (0.358-3.74); Triglycerides 191 mg/dL; Very Low Density Lipoprotein 38 mg/dL (5-40)
[2022-08-18 15:30] LABS: Microalbumin:Creatinine Ratio 17.5 mg/g CRE (<30 mg/g CRE)
== END | disposition home or self-care (01) ==
LOC: LAB 14:14
PROVIDERS: PCP Internal Medicine; Referring Provider Internal Medicine Endocrinology, Diabetes & Metabolism; Visit Provider Internal Medicine Endocrinology, Diabetes & Metabolism
DX: E11.9 Type 2 diabetes mellitus without complications (principal); I10 Essential (primary) hypertension; E78.5 Hyperlipidemia, unspecified; E05.20 Thyrotoxicosis with toxic multinodular goiter without thyrotoxic crisis or storm
CPT/HCPCS: 36415; 80053; 80061; 82043; 82570; 84439; 84443; 84481

== ENCOUNTER → 2022-08-30 | Outpatient (CLI) | payer MEDICARE, MEDICAID, SELFPAY ==
--- NOTE | 2022-08-30 12:45 | CDU_ITS ---
Reason For Study: bruit Rt. Velocities/BP Lt. Velocities/BP Prox CCA 104.7/16.8 cm/sec. Prox CCA 82.5/17.3 cm/sec. Mid CCA 85.0/16.8 cm/sec. Mid CCA 91.9/24.8 cm/sec. Dist CCA 59.7/16.8 cm/sec. Dist CCA 74.9/23.9 cm/sec. Prox ICA 63.0/15.7 cm/sec. Prox ICA 50.4/17.3 cm/sec. Mid ICA 66.3/27.8 cm/sec. Mid ICA 62.6/24.8 cm/sec. Dist ICA 158.7/55.5 cm/sec. Dist ICA 50.7/21.2 cm/sec. Rt. ICA/CCA = 1.9. Lt. ICA/CCA = .7. Prox ECA 67.4/4.7 cm/sec. Prox ECA 71.1/6.9 cm/sec. Rt. Vert. 33.7/10.2 cm/sec. Lt. Vert. 48.3/17.6 cm/sec. Right Extracranial There is intimal thickening but no significant atherosclerotic plaque noted in the right common carotid artery. There is homogeneous, smooth atherosclerotic plaque noted in the right internal carotid artery. There is intimal thickening but no significant atherosclerotic plaque noted in the right external carotid artery. Antegrade flow is noted in the right vertebral artery. Left Extracranial There is intimal thickening but no significant atherosclerotic plaque noted in the left common carotid artery. There is intimal thickening but no significant atherosclerotic plaque noted in the left internal carotid artery. The left internal carotid artery is very tortuous. There is intimal thickening but no significant atherosclerotic plaque noted in the left external carotid artery. Antegrade flow is noted in the left vertebral artery. Procedure Carotid Duplex [id number]. This is a Carotid Duplex examination using B-mode, color flow and specral Doppler. The exam was diagnostic. Exam performed in department. VL/Carotid Duplex Ultrasound Interpretation Summary Mild (<50%) stenosis right extracranial internal carotid. Mild (<50%) stenosis left extracranial internal carotid. Flow within the vertebral arteries is antegrade bilaterally. Ordering Physician: Tea Lobato Performed By: Aayush Guerrero RVT
== END | disposition home or self-care (01) ==
LOC: CVS 12:45
PROVIDERS: PCP Internal Medicine; Referring Provider Internal Medicine; Visit Provider Internal Medicine
DX: R09.89 Other specified symptoms and signs involving the circulatory and respiratory systems (principal); E11.9 Type 2 diabetes mellitus without complications; E05.90 Thyrotoxicosis, unspecified without thyrotoxic crisis or storm; I10 Essential (primary) hypertension; E78.5 Hyperlipidemia, unspecified
CPT/HCPCS: 93880

== ENCOUNTER → 2022-12-20 | Outpatient (CLI) | payer MEDICARE, MEDICAID, SELFPAY ==
[2022-12-20 14:04] LABS: Free T3 2.9 pg/mL (2.18-3.98); Thyroid Stim Hormone (TSH) 4.29 uIU/mL (0.358-3.74)
== END | disposition home or self-care (01) ==
LOC: LAB 12:21
PROVIDERS: PCP Internal Medicine; Referring Provider Internal Medicine Endocrinology, Diabetes & Metabolism; Visit Provider Internal Medicine Endocrinology, Diabetes & Metabolism
DX: E05.90 Thyrotoxicosis, unspecified without thyrotoxic crisis or storm (principal)
CPT/HCPCS: 36415; 84439; 84443; 84481

== ENCOUNTER → 2023-01-16 | Outpatient (CLI) | payer MEDICARE, MEDICAID, SELFPAY ==
--- NOTE | 2023-01-16 12:55 | BI_ITS ---
MAMMOGRAPHY - BILATERAL SCREENING REASON FOR EXAM: Female, 67 years old. Routine annual screening examination. PERTINENT HISTORY: Non-contributory. TECHNIQUE: Digital bilateral breast sue (3D mammographic acquisition) in the CC and MLO projections. 2-D mediolateral oblique (MLO) and craniocaudad (CC) views of both breasts were obtained. CAD: Full Field Digital Mammography with Computer Added Detection was performed. COMPARISON: Comparison is made with prior study of February 24, 2021. FINDINGS: Breast Composition: The breasts are almost entirely fatty. There is a 5.2 mm x 5.8 mm well-defined nodule in the retroareolar region of the right breast. Correlation with ultrasound is recommended. There are no dominant masses or suspicious calcifications. No other significant abnormalities are identified. BI/SCRN MAMM (CAD)W/SUE BILAT IMPRESSION: 5.2 mm x 5.8 mm well-defined nodule in the retroareolar region of the right breast as described. Correlation with ultrasound is recommended. ASSESSMENT CATEGORY: BIRADS Category 0: Incomplete. Need additional imaging evaluation. A letter regarding these results will be sent to the patient by the facility within 30 days. Approximately 10% of breast cancers are not detected by mammography. A normal mammogram should not delay biopsy of a clinically suspicious abnormality. [id number] Electronically Signed: Gigi Johnston MD at 14:31 EDT ,
== END | disposition home or self-care (01) ==
LOC: OPBI 12:54
PROVIDERS: PCP Internal Medicine; Referring Provider Internal Medicine; Visit Provider Internal Medicine
DX: Z12.31 Encounter for screening mammogram for malignant neoplasm of breast (principal)
CPT/HCPCS: 77063; 77067

== ENCOUNTER → 2023-01-26 | Outpatient (CLI) | payer MEDICARE, MEDICAID, SELFPAY ==
--- NOTE | 2023-01-26 12:36 | US_ITS ---
STUDY: ULTRASOUND BREAST - RIGHT REASON FOR EXAM: Female, 67 years old. Abnormal screening mammogram. TECHNIQUE: Axial and longitudinal images of the RIGHT breast were performed with a high resolution ultrasound transducer. # OF IMAGES: 8 COMPARISON: Comparison is made with prior mammogram dated January 16, 2023. FINDINGS: RIGHT Breast: The mammographic abnormality corresponds to a 6 mm x 6 mm x 5 mm hypoechoic irregular solid nodule at the 1:00 position breast and for sinusitis. Biopsy is recommended. US/Breast Limited Unilateral IMPRESSION: The mammographic abnormality corresponds to a 6 mm x 6 mm x 5 mm hypoechoic irregular nodule at the 1:00 position of the breast at 4 cm from the nipple. Biopsy is recommended. ASSESSMENT CATEGORY: BIRADS Category 4: Suspicious - Biopsy Should Be Considered. A letter regarding these results will be sent to the patient by the facility within 30 days. Electronically Signed: Gigi Johnston MD at 14:44 EDT ,
== END | disposition home or self-care (01) ==
LOC: OPUS 12:34
PROVIDERS: PCP Internal Medicine; Referring Provider Internal Medicine; Visit Provider Internal Medicine
DX: R92.8 Other abnormal and inconclusive findings on diagnostic imaging of breast (principal)
CPT/HCPCS: 76642

== ENCOUNTER → 2023-02-06 | Outpatient (CLI) | payer MEDICARE, MEDICAID, SELFPAY ==
--- NOTE | 2023-02-06 13:15 | BR_PTH ---
PATIENT: FRANK JIANG LOC: [facility] #:[id number] AGE/SX: 67/F ROOM: RE02/06/[address]: Dr. Steven Gilse MD : 1955 BED: DIS: 02/06/2023 SPEC #: [id number] RECD: 02/06/23 14:15 STATUS: ROBBIE REAbran #: [id number] TAYLOR: 02/06/23 13:[address]: Steven Giles DEPT: SURGICAL PATHOLOGY RECD BY: Lillie Huggins ENTERED: 02/07/23 11:24 SP TYPE: MAMOPLASTY OTHR DR: Dr. Tea Lobato MD Tissues: Right breast, NOS Procedures: Surgery Specimen Level V HEADER OPERATION: Right breast nodule biopsy/excision PRE-OP DIAGNOSIS: Right breast nodule TISSUE SUBMITTED: Right breast nodule/tissue MICROSCOPIC DIAGNOSIS Right breast nodule/tissue, excision: Fibrous nodule with chronic inflammation, focal fat necrosis and dystrophic calcifications. Negative for atypia or malignancy. See comment. LISA:shelby 02/08/2023 COMMENT Breast tissue is not present in the specimen. Correlation with clinical, radiologic findings and appropriate follow up are necessary. MICROSCOPIC DESCRIPTION Slides are reviewed. GROSS DESCRIPTION Received in fixative is one container labeled with the patient's name and designated right breast nodule/tissue. The specimen consists of a piece of domingo, indurated nodule measuring 0.9 x 0.7 x 0.5 cm. Sections reveal domingo, solid cut surfaces. The specimen is inked, serially sectioned and reveal domingo, solid cut surfaces with focal cystic area. Also present in the container are two fragments of yellow adipose tissue measuring in aggregate 0.4 x 0.3 x 0.1 cm. The entire specimen is submitted in one cassette. / LISA:shelby 02/07/2023 TC:5 CPT: 33177
== END | disposition home or self-care (01) ==
LOC: LABSPEC 02-07 11:20
PROVIDERS: PCP Internal Medicine; Visit Provider Surgery
DX: N63.10 Unspecified lump in the right breast, unspecified quadrant (principal)
CPT/HCPCS: 88305; 88307

== ENCOUNTER 2023-03-04 21:35 | Emergency (ER) | payer MEDICARE, MEDICAID, SELFPAY ==
[2023-03-04 21:36] VITALS: BP 199/90; PULSE 71; RESP 16; TEMP 36.7; O2SAT 97; BMI 34.7
--- NOTE | 2023-03-04 21:46 | EKG12_ITS ---
Test Reason : JAW PAIN Blood Pressure : / mmHG Vent. Rate : 067 BPM Atrial Rate : 067 BPM P-R Int : 232 ms QRS Dur : 084 ms QT Int : 392 ms P-R-T Axes : 039 -14 019 degrees QTc Int : 414 ms Sinus rhythm with 1st degree A-V block Minimal voltage criteria for LVH, may be normal variant ( R in aVL ) Cannot rule out Anterior infarct , age undetermined Abnormal ECG When compared with ECG of 30-SEP-2020 20:33, IL interval has increased Confirmed by PARAMJIT BURNETT, NING ([id number]), restaurant expeditor MANJIT GUIDO ([id number]) on 03/07/2023 10:15:15 AM Referred By: Confirmed By:NING YUSUF MD
--- NOTE | 2023-03-04 21:53 | EDS_ITS ---
HPI History of Present Illness Chief Complaint: Dental Informant: patient Narrative Narrative: Worsening right lower dental pain since yesterday. Seen her dentist a week ago there was a crack to she is being referred to another dentist for potential root canal to save her tooth. She states tooth #30. Subjective fever states hot and cold sensitivities. No trouble swallowing. In addition states overnight had transient left arm pain there is no chest pains. No cardiac history. Patient has allergy to penicillin. PFSH [facility] Medical History Arthritis Blood clot in vein Cataract Diabetes Factor 5 Leiden mutation, heterozygous Goiter H/O: pneumonia History of blood clots History of macular degeneration Hyperlipidemia Hypertension Hyperthyroidism Macular degeneration Osteoporosis Vitamin B12 deficiency Home Medications loratadine 10 mg tablet 5 mg PO DAILY ALLERGIES 10/01/20 [History Last Taken Unknown] acetaminophen 325 mg tablet 650 mg PO Q6H PRN PRN Pain Score 1-10/Temp > 100.7 F 10/03/20 [Rx Last Taken Unknown] calcium carbonate 600 mg-vitamin D3 20 mcg (800 unit) chewable tablet (Caltrate 600 plus D) 1 tab PO BID 02/18/21 [History Last Taken Unknown] coenzyme Q10 200 mg capsule (Co Q-10) 200 mg PO DAILY 02/18/21 [History Last Taken Unknown] mecobalamin (vitamin B12) 1,000 mcg disintegrating tablet,sublingual 500 mcg sublingual MOWEFR 02/18/21 [History Last Taken Unknown] melatonin 5 mg capsule 5 mg PO QHS PRN PRN Sleep 02/18/21 [History Last Taken Unknown] multivitamin 1 tab PO DAILY 02/18/21 [History Last Taken Unknown] omega-3 fatty acids 1,000 mg capsule 1,000 mg PO BID 02/18/21 [History Last Taken Unknown] vitamins A,C,Y-eiyc-luovhl 4,296 mcg-226 mg-90 mg capsule (PreserVision AREDS) 1 cap PO BID 02/18/21 [History Last Taken Unknown] atorvastatin 20 mg tablet 20 mg PO QHS CHOLESTEROL #90 tabs 12/20/22 [Rx Last Taken Unknown] famotidine 20 mg tablet 20 mg PO BID GERD #180 tabs 12/20/22 [Rx Last Taken Unknown] oxybutynin chloride 5 mg tablet 5 mg PO BID #180 tabs 12/20/22 [Rx Last Taken Unknown] clindamycin HCl 150 mg capsule 450 mg PO Q8H 7 days #63 caps 03/04/23 [Rx Last Taken Unknown] methimazole 5 mg tablet 5 mg PO MOTUWETH 03/04/23 [History Last Taken Unknown] tramadol 50 mg tablet 50 mg PO Q4H PRN PRN Pain 3 days #10 tabs 03/04/23 [Rx L ast Taken Unknown] Allergy/AdvReac Type Severity Reaction Status Date / Time epinephrine Allergy Anaphylaxis Verified 03/04/23 21:38 Penicillins AdvReac NEEDS Verified 03/04/23 21:38 FOLLOW-UP Family History Grandmother Diabetes Mother Diabetes CVA (cerebral vascular accident) Father Heart disease Alzheimer disease Aunt Cancer Other Asthma Colon cancer Myocardial infarction Thyroid disorder Surgical History History of bladder repair surgery History of colonoscopy with polypectomy History of hysterectomy Social History Smoking Status: Never smoker alcohol intake: never substance use type: does not use what type of physical activity do you participate in: walking frequency: daily ROS ROS ED Constitutional Constitutional ED: Denies chills, fever(s) or sweats Eyes Eyes: Denies change in vision ENT ENT ED: Reports other Details: Right lower dental pain. ; Denies dysphagia or sore throat Cardiovascular Cardiovascular: Denies chest pain, leg edema, palpitations or racing heartbeat Respiratory/Chest Respiratory/Chest: Denies cough, dyspnea or dyspnea on exertion Gastrointestinal Gastrointestinal: Denies abdominal pain, diarrhea, nausea or vomiting Genitourinary Genitourinary ED: Denies dysuria, hematuria or urinary frequency Musculoskeletal Musculoskeletal: Reports extremity pain; Denies back pain or neck pain Integumentary Denies rash or wounds Neurologic Neurologic: Denies headache(s), paresthesias or weakness EXAM Physical Exam Const Vital Signs: 03/04/23 21:36 Temperature 98.1 F Temperature Source Temporal Pulse Rate 71 Respiratory Rate 16 Blood Pressure 199/90 H Blood Pressure Mean 126 Pulse Ox 97 Oxygen Delivery Method Room Air Positive well nourished and well developed General Appearance ED: well developed and NAD HEENT Reports moist mucous membranes HEENT Narrative: Missing tooth 29 and 31, tooth 30 with cracked anteriorly there was a dental filling in the middle. There is slight tenderness to percussion. No sublingual edema no focal abscess. Airway patent. normocephalic and atraumatic Eyes PERRL, EOMs intact bilaterally and conjunctivae normal General Eye ED: Yes normal appearance of both eyes Neck no lymphadenopathy and supple General: Negative for tenderness Chest Wall Chest: Negative for tenderness Resp normal respiratory effort and normal air movement Effort and Inspection: symmetric chest movement; Negative for respiratory distress Cardio regular rate, regular rhythm and no murmurs Peripheral Pulses: pulses 2+ throughout GI normal to inspection, nondistended, normoactive bowel sounds and non-tender Palpation: Negative for guarding or rebound tenderness present Back/Spine no CVA tenderness and no thoracic nor lumbar tenderness Extremity normal to inspection General Extremety ED: Negative for edema or tenderness General Extremity: Negative for edema Neuro oriented x3 and no sensory deficits noted Sensorium / Orientation: awake and alert Skin no rashes or lesions noted and no wounds MDM MDM MDM Narrative Medical decision making narrative: Interventions / MDM: Differential diagnosis: Dental carry, dental pain Diagnosis considered but do not suspect: ACS however EKG with no ischemic findings My EKG interpretation: Sinus rate of 67, no ST changes isolated T wave version lead III. Nonspecific. Imaging independently reviewed and interpreted by myself: N/A External documents reviewed: N/A Test considered but not ordered:N/A ED course: Transient left arm pain no chest pains. EKG obtained no ischemic concerns. Presenting with dental pain with dental carry. Allergic to penicillins. Clindamycin started. Tramadol for symptom control. OARRS report was negative. Meds to beds provided. Dental list given for definitive outpatient follow-up and treatment. All questions were answered. Return precautions. Re-evaluation: stable Disposition discussed with patient/family/significant other: Patient and friend Case discussed with consulting clinician: N/A Discharge Plan Triage Chief Complaint: Dental ED Provider: Guy Stroud Dx/Rx/DC Orders Clinical Impression: Dental caries, Dentalgia Instructions: ED Dental Pain, ED Dental Cavity Prescriptions: New tramadol 50 mg tablet 50 mg PO Q4H PRN PRN (Reason: Pain) 3 Days Qty: 10 0RF clindamycin HCl 150 mg capsule 450 mg PO Q8H 7 Days Qty: 63 0RF No Action mecobalamin (vitamin B12) 1,000 mcg tablet,disintegrating 500 mcg sublingual MOWEFR Rx Instructions: place tablet under tongue and allow to dissolve for at least30 secs before swallowing melatonin 5 mg capsule 5 mg PO QHS PRN PRN (Reason: Sleep) omega-3 fatty acids 1,000 mg capsule 1,000 mg PO BID coenzyme Q10 [Co Q-10] 200 mg capsule 200 mg PO DAILY PreserVision AREDS [id number] capsule 1 cap PO BID multivitamin Tablet 1 tab PO DAILY Caltrate 600 plus D 600 mg (1,500 mg)-800 unit tablet,chewable 1 tab PO BID loratadine 10 MG tablet 5 mg PO DAILY acetaminophen 325 MG tablet 650 mg PO Q6H PRN PRN (Reason: Pain Score 1-10/Temp > 100.7 F) 0RF methimazole 5 mg tablet 5 mg PO MOTUWETH oxybutynin chloride 5 mg tablet 5 mg PO BID Qty: 180 3RF famotidine 20 mg tablet 20 mg PO BID Qty: 180 3RF atorvastatin 20 mg tablet 20 mg PO QHS Qty: 90 3RF Primary Care Provider: Tea Lobato Referrals: Tea Lobato MD [Primary Care Provider] - Activity Restrictions/Additional Instructions: Take and finish antibiotics and prescribed pain medicines as needed. Follow-up with dentist for definitive treatment. Disposition Disposition: Home, Self Care
[2023-03-04] MEDS: traMADol 50 MG Tablet PO (21:54)
[2023-03-04] MEDS: Clindamycin HCl 150 MG Capsule 450 MG PO (21:55)
== END 2023-03-04 22:59 | disposition home or self-care (01) ==
LOC: ED 22:09
PROVIDERS: Emergency Provider Emergency Medicine; PCP Internal Medicine; Visit Provider Emergency Medicine
DX: E11.638 Type 2 diabetes mellitus with other oral complications (principal); K08.89 Other specified disorders of teeth and supporting structures; E78.5 Hyperlipidemia, unspecified; I10 Essential (primary) hypertension; M79.602 Pain in left arm
CPT/HCPCS: 93005; 99283

== ENCOUNTER → 2023-04-06 | Outpatient (CLI) | payer MEDICARE, MEDICAID, SELFPAY ==
[2023-04-06 14:32] LABS: Free T3 2.4 pg/mL (2.18-3.98); T4 Free Direct 0.98 ng/dL (0.76-1.46)
== END | disposition home or self-care (01) ==
LOC: LAB 13:34
PROVIDERS: PCP Internal Medicine; Referring Provider Internal Medicine Endocrinology, Diabetes & Metabolism; Visit Provider Internal Medicine Endocrinology, Diabetes & Metabolism
DX: E05.20 Thyrotoxicosis with toxic multinodular goiter without thyrotoxic crisis or storm (principal); E11.9 Type 2 diabetes mellitus without complications
CPT/HCPCS: 36415; 84439; 84443; 84481

== ENCOUNTER 2023-08-05 14:43 | Emergency (ER) | payer MEDICARE, MEDICAID, SELFPAY ==
[2023-08-05 14:44] VITALS: BP 144/74; PULSE 59; RESP 18; TEMP 36.2; O2SAT 99
[2023-08-05 14:53] VITALS: BMI 35.2
--- NOTE | 2023-08-05 15:15 | RAD_ITS ---
HISTORY: Trauma. TECHNIQUE: XR Knee Complete 4 Views or More. COMPARISON: None. FINDINGS: BONES : No acute fracture identified. Mineralization unremarkable. Mild degenerative osteophytes. JOINTS: No dislocation. Joint spaces maintained. SOFT TISSUES: Small soft tissue calcifications noted. Anterior soft tissue swelling. RAD/Knee 4 or More Views IMPRESSION: No acute fracture or dislocation identified in the right knee. Electronically Signed: Mercy Estevez MD at 15:40 EDT ,
--- NOTE | 2023-08-05 15:41 | EDS_ITS ---
HPI History of Present Illness Chief Complaint: Lower Extremity Injury Informant: patient Narrative Narrative: Patient complains of right knee pain. Patient states she does have arthritis all over my body. She stepped down out of a trailer. When she landed on her right leg her knee hurt and it almost gave out from under her. She did not fall to the ground. She has pain mostly on the lateral aspect of the knee. No hip or ankle pain. No swelling. [facility] Medical History Arthritis Blood clot in vein Cataract Diabetes Factor 5 Leiden mutation, heterozygous Goiter H/O: pneumonia History of blood clots History of macular degeneration Hyperlipidemia Hypertension Hyperthyroidism Macular degeneration Osteoporosis Vitamin B12 deficiency Home Medications loratadine 10 mg tablet 5 mg PO DAILY ALLERGIES 10/01/20 [History Last Taken Unknown] acetaminophen 325 mg tablet 650 mg (2 x 325 mg) PO Q6H PRN PRN Pain Score 1- 10/Temp > 100.7 F 10/03/20 [Rx Last Taken Unknown] calcium carbonate 600 mg-vitamin D3 20 mcg (800 unit) chewable tablet (Caltrate 600 plus D) 1 tab PO BID 02/18/21 [History Last Taken Unknown] coenzyme Q10 200 mg capsule (Co Q-10) 200 mg PO DAILY 02/18/21 [History Last Taken Unknown] mecobalamin (vitamin B12) 1,000 mcg disintegrating tablet,sublingual 500 mcg sublingual MOWEFR 02/18/21 [History Last Taken Unknown] multivitamin 1 tab PO DAILY 02/18/21 [History Last Taken Unknown] omega-3 fatty acids 1,000 mg capsule 1,000 mg PO BID 02/18/21 [History Last Taken Unknown] vitamins A,C,E-jzqg-ugafpi 4,296 mcg-226 mg-90 mg capsule (PreserVision AREDS) 1 cap PO BID 02/18/21 [History Last Taken Unknown] atorvastatin 20 mg tablet 20 mg PO QHS CHOLESTEROL #90 tabs 12/20/22 [Rx Last Taken Unknown] famotidine 20 mg tablet 20 mg PO BID GERD #180 tabs 12/20/22 [Rx Last Taken Unknown] oxybutynin chloride 5 mg tablet 5 mg PO BID #180 tabs 12/20/22 [Rx Last Taken Unknown] methimazole 5 mg tablet 5 mg PO MOTUWETH 03/04/23 [History Last Taken Unknown] Allergy/AdvReac Type Severity Reaction Status Date / Time epinephrine Allergy Anaphylaxis Verified 08/05/23 14:44 Penicillins AdvReac NEEDS Verified 08/05/23 14:44 FOLLOW-UP Family History Grandmother Diabetes Mother Diabetes CVA (cerebral vascular accident) Father Heart disease Alzheimer disease Aunt Cancer Other Asthma Colon cancer Myocardial infarction Thyroid disorder Surgical History History of bladder repair surgery History of colonoscopy with polypectomy History of hysterectomy S/P breast biopsy, right Social History Smoking Status: Never smoker alcohol intake: never substance use type: does not use what type of physical activity do you participate in: walking frequency: daily ROS ROS ED Constitutional Constitutional ED: Denies chills or fever(s) ENT ENT ED: Denies rhinorrhea Respiratory/Chest Respiratory/Chest: Denies cough or dyspnea Gastrointestinal Gastrointestinal: Denies nausea or vomiting Musculoskeletal Musculoskeletal: Reports arthralgias Integumentary Denies Abrasions or rash Neurologic Neurologic: Denies headache(s), paresthesias or weakness Hematologic/Lymphatic Hematologic/Lymphatic: Denies lymphadenopathy EXAM Physical Exam Narrative Exam Narrative: General: Patient is awake alert sitting comfortably in the bed no acute distress. HEENT: No sign of trauma. Cardiorespiratory shows unlabored breathing. Pulses are normal distally Lungs are clear bilaterally Abdomen soft and nontender Examination of the extremities does show some mild tenderness to the lateral joint line of the right knee. But it is stable to exam. No swelling of the leg proximally or distally. No sign of infection. Extensor mechanism is intact. Const Vital Signs: 08/05/23 14:44 Temperature 97.2 F L Temperature Source Temporal Pulse Rate 59 L Respiratory Rate 18 Blood Pressure 144/74 H Blood Pressure Mean 97 Pulse Ox 99 Oxygen Delivery Method Room Air MDM MDM MDM Narrative Medical decision making narrative: My independent interpretation of the patient's 4 view x-ray of the right knee shows some arthritic changes but no acute fracture. Final reading is no acute fracture or dislocation identified in the right knee. Patient is comfortable going home. She is comfortable with ice and [id number] meds. I explained that if this is not improving she may need follow-up care. She may have a meniscal injury. I did stress her knee and it is stable to inversion eversion and [facility] Diagnostic Testing: Clinical Impression(s) from Imaging Studies Knee X-Ray 08/05/23 15:15 IMPRESSION: No acute fracture or dislocation identified in the right knee. Electronically Signed: Mercy Estevez MD at 15:40 EDT , Discharge Plan Triage Chief Complaint: Lower Extremity Injury ED Provider: Severo Bunch Dx/Rx/DC Orders Clinical Impression: Strain of right knee Instructions: ED Knee Sprain Prescriptions: No Action mecobalamin (vitamin B12) 1,000 mcg tablet,disintegrating 500 mcg sublingual MOWEFR Rx Instructions: place tablet under tongue and allow to dissolve for at least30 secs before swallowing omega-3 fatty acids 1,000 mg capsule 1,000 mg PO BID coenzyme Q10 [Co Q-10] 200 mg capsule 200 mg PO DAILY PreserVision AREDS [id number] [id number] capsule 1 cap PO BID multivitamin Tablet 1 tab PO DAILY Caltrate 600 plus D 600 mg (1,500 mg)-800 unit tablet,chewable 1 tab PO BID loratadine 10 MG tablet 5 mg PO DAILY acetaminophen 325 MG tablet 650 mg PO Q6H PRN PRN (Reason: Pain Score 1-10/Temp > 100.7 F) 0RF methimazole 5 mg tablet 5 mg PO MOTUWETH oxybutynin chloride 5 mg tablet 5 mg PO BID Qty: 180 3RF famotidine 20 mg tablet 20 mg PO BID Qty: 180 3RF atorvastatin 20 mg tablet 20 mg PO QHS Qty: 90 3RF Primary Care Provider: Tea Lobato Referrals: Tea Lobato MD [Primary Care Provider] - 3-5 Days if not improving Activity Restrictions/Additional Instructions: Ice, elevate, Tylenol or short-term Motrin for pain. Disposition Disposition: Home, Self Care Discharge Date/Time: 08/05/23 16:36
== END 2023-08-05 16:36 | disposition home or self-care (01) ==
PROVIDERS: Emergency Provider Emergency Medicine; PCP Internal Medicine; Visit Provider Emergency Medicine
DX: S83.91XA Sprain of unspecified site of right knee, initial encounter (principal); E11.9 Type 2 diabetes mellitus without complications; M17.11 Unilateral primary osteoarthritis, right knee; I10 Essential (primary) hypertension; E78.5 Hyperlipidemia, unspecified; X58.XXXA Exposure to other specified factors, initial encounter
CPT/HCPCS: 73564; 99282

== ENCOUNTER → 2023-09-07 | Outpatient (CLI) | payer MEDICARE, MEDICAID, SELFPAY ==
[2023-09-07 11:21] LABS: Absolute Lymphocyte Count 2.21 X10^3/uL (0.83-4.51); Absolute Neutrophil Count 3.3 X10^3/uL (2.0-7.7); Basophil# 0.01 X10^3/uL; Basophil% 0.2 % (0-1); Eosinophil# 0.14 X10^3/uL; Eosinophils% 2.3 % (0-5); Hematocrit 44.2 % (37-47); Lymphocyte # 2.21 X10^3/ul (0.83-4.51); Lymphocyte % 36.3 % (19-41); Mean Corp Hgb Conc 31.7 g/dL (32-36); Mean Corpuscular Hgb 28.1 pg (27.0-32.0); Mean Corpuscular Volume 88.8 fL (81-99); Mean Platelet Vol. 9.8 fl (6.2-12.0); Monocyte# 0.45 X10^3/uL; Monocyte% 7.4 % (0-10); NRBC Flagged by Analyzer 0 % (0-5); Neutrophil # 3.25 X10^3/uL (2.7-7.7); Neutrophil % 53.5 % (47-70); Platelet Count 185 K/mm3 (150-450); RBC Distribution Width SD 45.5 fl (35.1-43.9); Red Blood Count 4.98 M/mm3 (4.2-5.4); White Blood Count 6.1 K/mm3 (4.4-11.0)
[2023-09-07 11:39] LABS: ALB/GLOB Ratio 0.9 RATIO (0.9-2.4); AST(SGOT) 22 U/L (15-37); Alanine Aminotransfer ALT/SGPT 22 U/L (13-56); Albumin, Serum 3.5 g/dL (3.2-5.0); Alkaline Phosphatase 111 U/L (45-117); Anion Gap 5 (5-15); BUN 16 mg/dL (7-18); BUN/Creat Ratio 21.7 RATIO (10-20); Calcium,Total 9.7 mg/dL (8.5-10.1); Chloride 108 mmol/L (98-107); Cholesterol 168 mg/dL (200); Creatinine, Serum 0.74 mg/dL (0.55-1.02); EST Glomerular Filtration Rate 84 mL/min (>60); Est Glom Filt Rate - Afr Amer 102 mL/min (>60); Globulin 3.9 g/dL (2.2-4.2); Glucose 109 mg/dL (74-106); High Density Lipoprotein 54 mg/dL; Potassium 4.1 mmol/L (3.5-5.1); Protein, Total 7.4 g/dL (6.4-8.2); Sodium Level 142 mmol/L (136-145); Triglycerides 155 mg/dL; Very Low Density Lipoprotein 31 mg/dL (5-40)
== END | disposition home or self-care (01) ==
LOC: LAB 10:07
PROVIDERS: PCP Internal Medicine; Referring Provider Internal Medicine; Visit Provider Internal Medicine
DX: Z13.220 Encounter for screening for lipoid disorders (principal); I10 Essential (primary) hypertension; E78.5 Hyperlipidemia, unspecified; E05.20 Thyrotoxicosis with toxic multinodular goiter without thyrotoxic crisis or storm; E55.9 Vitamin D deficiency, unspecified; J12.81 Pneumonia due to SARS-associated coronavirus
CPT/HCPCS: 36415; 80053; 80061; 82306; 85025

== ENCOUNTER → 2023-12-25 | Outpatient (CLI) | payer MEDICARE, MEDICAID, SELFPAY ==
[2023-12-25 15:20] LABS: Absolute Lymphocyte Count 1.44 X10^3/uL (0.83-4.51); Absolute Neutrophil Count 3.3 X10^3/uL (2.0-7.7); Basophil# 0.02 X10^3/uL; Basophil% 0.4 % (0-1); Eosinophil# 0.08 X10^3/uL; Eosinophils% 1.5 % (0-5); Hemoglobin 14.3 g/dL (12.0-15.0); Lymphocyte # 1.44 X10^3/ul (0.83-4.51); Lymphocyte % 27.7 % (19-41); Mean Corp Hgb Conc 33.3 g/dL (32-36); Mean Corpuscular Volume 87.2 fL (81-99); Mean Platelet Vol. 9.3 fl (6.2-12.0); Monocyte# 0.41 X10^3/uL; Monocyte% 7.9 % (0-10); NRBC Flagged by Analyzer 0 % (0-5); Neutrophil # 3.25 X10^3/uL (2.7-7.7); Neutrophil % 62.5 % (47-70); Platelet Count 181 K/mm3 (150-450); RBC Distribution Width CV 13.2 % (11.6-14.6); RBC Distribution Width SD 42.5 fl (35.1-43.9); Red Blood Count 4.93 M/mm3 (4.2-5.4); White Blood Count 5.2 K/mm3 (4.4-11.0)
[2023-12-25 15:52] LABS: Vitamin B12 985 pg/mL (211-911); Vitamin D,25 Hydroxy 30.6 ng/mL
[2023-12-25 15:54] LABS: AST(SGOT) 22 U/L (15-37); Alanine Aminotransfer ALT/SGPT 22 U/L (13-56); Albumin, Serum 3.7 g/dL (3.2-5.0); Alkaline Phosphatase 115 U/L (45-117); Anion Gap 4 (5-15); BUN 15 mg/dL (7-18); BUN/Creat Ratio 19.2 RATIO (10-20); Chloride 108 mmol/L (98-107); Cholesterol 166 mg/dL (200); Creatinine, Serum 0.78 mg/dL (0.55-1.02); EST Glomerular Filtration Rate 78 mL/min (>60); Est Glom Filt Rate - Afr Amer 95 mL/min (>60); Globulin 3.8 g/dL (2.2-4.2); Glucose 102 mg/dL (74-106); High Density Lipoprotein 50 mg/dL; Potassium 4.1 mmol/L (3.5-5.1); Protein, Total 7.5 g/dL (6.4-8.2); Sodium Level 140 mmol/L (136-145); Triglycerides 187 mg/dL; Very Low Density Lipoprotein 37 mg/dL (5-40)
[2023-12-25 15:58] LABS: Free T3 2.5 pg/mL (2.18-3.98); T4 Free Direct 1.08 ng/dL (0.76-1.46)
--- OUTSIDE RECORDS SUMMARY | 2023-12-25 17:18 | XMS RPT_ITS | CCD ---
Author Name Unknown Address [address] [place] [address] Organization [facility] Care Team Providers Care Veterinarian Assistant Name Role Phone SYSTEM, PROVIDER NOT IN Attending Unavaila ble SYSTEM, PROVIDER NOT IN Attending Unavaila ble Neptali Espino Unavailable No, Physician Primary Care Provider Unavailabl e NO, PHYSICIAN Primary Care Unavailable DEBORAH FRANCOIS Attending Unavailable AMY, MARY GRACE Primary Care Unavailable AMY, MARY GRACE Attending Unavailable AMY, MARY GRACE Attending Unavailable AMY, MARY GRACE Primary Care Unavailable AMY, MARY GRACE Primary Care Unavailable AMY, MARY GRACE Attending Unavailable LOGAN AHUJA Referring Unavailable LOGAN AHUJA Attending Unavailable AMY, MARY GRACE Primary Care Unavailable AMY, MARY GRACE Primary Care Unavailable DARYL AMADOR Attending Unavailable ENRIQUE HORTON Attending Unavailable AMY, MARY GRACE Primary Care Unavailable AMY, MARY GRACE Primary Care Unavailable AMY, MARY GRACE Attending Unavailable CATA RIOS~[id number] Attending Unavailabl e CATA RIOS~[id number] Admitting Unavailabl e AMY, MARY GRACE Primary Care Unavailable AMY, MARY GRACE Attending Unavailable AMY, MARY GRACE Primary Care Unavailable AMY, MARY GRACE Primary Care Unavailable LOGAN AHUJA Referring Unavailable LOGAN AHUJA Attending Unavailable AMY, MARY GRACE Primary Care Unavailable STEPHANIE CAVAZOS Attending Unavailable AMY, MARY GRACE Primary Care Unavailable AMY, MARY GRACE Attending Unavailable AMY, MARY GRACE Attending Unavailable AMY, MARY GRACE Primary Care Unavailable AMY, MARY GRACE Attending Unavailable AMY, MARY GRACE Primary Care Unavailable AMY, MARY GRACE Primary Care Unavailable AMY, MARY GRACE Attending Unavailable MICHELLE GATICA Attending Unavailable AMY, MARY GRACE Primary Care Unavailable AMY, MARY GRACE Attending Unavailable AMY, MARY GRACE Primary Care Unavailable ENRIQUE HORTON Attending Unavailable AMY, MARY GRACE Primary Care Unavailable CATA RIOS~[id number] Attending Unavailabl e CATA RIOS~[id number] Admitting Unavailabl e AMY, MARY GRACE Primary Care Unavailable AMY, MARY GRACE Attending Unavailable AMY, MARY GRACE Primary Care Unavailable AMY, MARY GRACE Attending Unavailable AMY, MARY GRACE Primary Care Unavailable AMY, MARY GRACE Referring Unavailable AMY, MARY GRACE Attending Unavailable AMY, MARY GRACE Primary Care Unavailable AMY, MARY GRACE Primary Care Unavailable AMY, MARY GRACE Attending Unavailable Unavailable Primary Care Provider UnavailNASH Sutton Attending Unavailable NASH CHRISTINE Referring Unavailable NO, PHYSICIAN Primary Care Unavailable Allergies Allergy Classification Reported Allergen(s) Allergy Type Date of Onset Reaction(s) Facility (7 sources) Aspirin; Translations: [Unknown] Drug Allergy 0 Unknown [facility] Action Committee [facility] Other (7 sources) EPINEPHrine; Translations: [EPINEPHRINE] Drug Allergy 0 Other: See Comments [facility] Action Committee [facility] ([facility] Other (1 source) Penicillins (Antibiotic) Propensity to adverse reactions Unknown [facility] Action Committee [facility] Other (2 sources) Angiotensin Converting Enzyme (Sarath) Inhibitors; Translations: [SARATH INHIBITORS] Propensity to adverse reactions to drug (disorder) [facility] Repository (1 source) Doxycycline; Translations: [DOXYCYCLINE] Drug Allergy [facility] Repository (1 source) fluticasone; Translations: [FLUTICASONE] Drug Allergy [facility] Rep[facility] (2 sources) Penicillins; Translations: [PENICILLINS] Propensity to adverse reactions to drug (disorder) 1 Other: See Comments [facility] Rep[facility] Medications Current Medications Medication Drug Class(es) Dates Sig (Normalized) Sig (Original) B-12 (1 source) B-12 Active Calcium (1 source) Phosphate Binder, Calcium Calcium Active Coenzyme Q-10 (1 source) Coenzyme Q-10 Ac tive cyclobenzaprine hydrochloride 10 mg oral tablet (3 sources) Muscle Relaxant Start: 07-21-2020 take 1 tablet by mouth three times daily as needed for muscle spasms cyclobenzaprine (FLEXERIL) 10 MG tablet Take 1 (one) tablet (10 mg total) by mouth 3 (three) times a day as needed for muscle spasms . 15 tablet 0 07/21/2020 Active Completed/Discontinued Medications Medication Drug Class(es) Dates Sig (Normalized) Sig (Original) alendronic acid 70 mg oral tablet (6 sources) Bisphosphonate Start: 06-09-2020 take 1 tablet by mouth every week alendronate (FOSAMAX) 70 mg tablet Take 70 mg by mouth one time a week. 0 09/14/2020 Active Problems Active Problems Problem Classification Problem Date Documented Da te Episodic/Chronic Cataract (1 source) Cataract Onset: 06-12-2020 Conditions associated with dizziness or vertigo (1 source) Dizziness; Translations: [Dizziness and giddiness] Episodic Diabetes mellitus with complications (1 source) Type 2 diabetes mellitus with hyperglycemia; Translations: [Type 2 diabetes mellitus with hyperglycemia] Onset: 02-10-2020 Chronic Disorders of lipid metabolism (3 sources) Mixed hyperlipidemia; Translations: [Hyperlipidemia, unspecified] Onset: 10-06-2009 Chronic Essential hypertension (3 sources) Essential (primary) hypertension; Translations: [Essential (primary) hypertension] Onset: 04-15-2020 Chronic Heart valve disorders (2 sources) Nonrheumatic aortic (valve) insufficiency; Translations: [Nonrheumatic aortic (valve) insufficiency] Onset: 06-02-2023 Chronic Thyroid disorders (2 sources) Nontoxic goiter, unspecified; Translations: [Thyrotoxicosis, unspecified without thyrotoxic crisis or storm] Onset: 12-17-2018 Chronic Unclassified (1 source) Strain of right trapezius muscle; Translations: [Trapezius strain, right, initial encounter] Past or Other Problems Problem Classification Problem Date Documented Da te Episodic/Chronic Disorders of teeth and jaw (1 source) Dental caries on pit and fissure surface penetrating into pulp; Translations: [Dental caries on pit and fissure surface penetrating into pulp K02.53] Onset: 03-11-2020 Resolved: 03-11-2020 Episodic Nonspecific chest pain (2 sources) Chest pain; Translations: [Chest pain, unspecified type] Episodic Results Test Name Value Interpretation Reference Range Facil it Vital Signs Date Time Vital Sign Value Performing Clinician Facility 07-21-2020 18:30-0400 BP Di[facility] 72 mm[Hg[facility]:30-0400 BP Systolic 135 mm[Hg] Virginia Andre [facility] 07-21-2020 18:30-0400 Pulse (Heart Rate) 77 /min Virginia Andre [facility] 07-21-2020 18:30-0400 Pulse Oximetry 97 % Virginia Andre [facility] 07-21-2020 18:30-0400 Respiratory Rate 20 /min Virginia Andre [facility] 07-21-2020 16:09-0400 BMI (Body Mass Index) 30.99 kg/m2 Virginia Andre [facility] 07-21-2020 16:090400 Body Temperature 98.71 [degF] Virginia Andre [facility] 07-21-2020 16:090400 Body weight 74.39 kg Virginia Andre [facility] 07-21-2020 16:0400 Height 154.9 cm Virginia Andre [facility] 07-21-2020 15:25-0400 Body Temperature 98.71 [degF] [facility]-2020 15:25-0400 Body [facility] 74.39 [facility] 07-21-2020 15:25-0400 BP Diastolic 81 mm[Hg] [facility] 07-21-2020 15:25-0400 BP Systolic 130 mm[Hg] [facility] 07-21-2020 15:25-0400 Pulse (Heart Rate) 81 /min [facility] 07-21-2020 15:25-0400 Pulse Oximetry 97 % [facility] 07-21-2020 15:25-0400 Respiratory Rate 20 /min [facility] 03-11-2020 14:00-0400 Body Temperature 97.7 [degF] Neptali Harrella [facility] Other 03-11-2020 14:00-0400 BP Diastolic 77 mm[Hg] Neptali Privitera [facility] Acti on Committee of [facility] Other 03-11-2020 14:00-0400 BP Systolic 141 mm[Hg] Neptali Mckeonitera Community Acti on [facility] of [facility] Other 03-11-2020 14:00-0400 Height 154.94 cm Neptali Gonzalez Acti on Committee of [facility] ([facility] Other 03-11-2020 14:00-0400 Pulse (Heart Rate) 81 /min Neptali Espino [facility] A ction Committee of [facility] ([facility] Other Encounters Encounter Date Encounter Type Care Provider Facility Start: 06-02-2023 End: 06-03-2023 ambulatory [facility] Start: 05-02-2022 End: 05-02-2022 Patient encounter procedure Jeff Joyner APRN.ORDER PROCESSOR Work Phone: [facility] Procedures Date Procedure Procedure Detail Performing Clinician Start: 02-24-2021 Mammography Jeff dubois CEMENT OR CONCRETE FINISHING SUPERVISOR.ORDER PROCESSOR Work Phone: Start: 07-21-2020 Radiologic exam ches t single view Virginia Andre Work Phone: Start: 07-21-2020 Basic metabolic 2000 panel - Serum or Plasma Virginia Andre Work Phone: Start: 07-21-2020 Complete blood count with white cell differential, automated Virginialluvia Andre Work Phone: Start: 07-21-2020 Complete blood count with white cell differential, manual Virginia Andre Work Phone: Start: 07-21-2020 LAVENDER TOP Triage Pro to[facility] Start: 07-21-2020 LIGHT BLUE TOP Triage P rotocol Emergency Start: 07-21-2020 LIGHT GREEN TOP Triage Protocol Emergency Start: 07-21-2020 MINT GREEN TOP Triage P rotocol Emergency Start: 07-21-2020 RAINBOW DRAW Triage Pro tocol Emergency Start: 07-21-2020 Troponin measurement Me miah Trana Helengordon Work Phone: Plan of Treatment Date Care Activity Detail Author Start: 06-23-2022 Influenza vaccination INFLUENZA (#1) [facility] Start: 02-24-2022 Mammography MAMMOGRAM [facility] Start: 06-23-2020 Influenza vaccinatio n given Sequential Influenza Vaccine (#1) [facility] Start: 2007 Administration of he rpes zoster vaccine Zoster Vaccines (1 of 2) [facility] Start: 2007 Screening for malign ant neoplasm of colon [facility] Start: 2007 SHINGRIX VACCINE (1 of 2) SHINGRIX V ACCINE (1 of 2) [facility] Start: 2002 COLOGUARD (FIT-DNA) COLOGUARD (FIT-D NA) [facility] Start: 2002 Colonoscopy COLONOSCOPY [facility] Start: 2002 COLORECTAL CANCER SCREENING COLORECTAL CANCER SCREENING [facility] Start: [address] COLONOGRAPHY [facility] Start: 2002 DIABETES SCREEN DIABETES SCREEN [facility] Start: 2002 FECAL OCCULT BLOOD FECAL OCCULT BLOO D [facility] Start: 2002 LIPID SCREEN LIPID SCREEN [facility] Start: 2002 SIGMOIDOSCOPY SIGMOIDOSCOPY [facility] Start: 1987 HPV TESTING HPV TESTING [facility] Start: 1978 PAP TESTING PAP TESTING [facility] Start: 1976 Urine microalbumin profile DTAP,TDAP ,TD (1 - Tdap) [facility] Start: 1975 Hepatitis C antibody , confirmatory test Hepatitis C Screening [facility] Start: 1975 HEPATITIS C SCREENING HEPATITIS C SC REENING [facility] Start: 1975 HIV SCREENING HIV SCREENING [facility] Start: 1973 COVID-19 Vaccine (1 of 2) COVID-19 V accine (1 of 2) [facility] Start: 1972 HIV screening HIV Screening [facility] Start: 1969 Adolescent depressio n screening assessment [facility] Start: 1960 History and physical examination, annual for health maintenance Wellness Visit [facility] Start: 06-01-1958 COVID-19 VACCINE (#1) COVID-19 VACCI NE (#1) [facility] Start: 1957 Screening for malign ant neoplasm of cervix Pap Smear [facility] Start: 1957 Screening mammography Mammogram [facility] Start: 1957 Tetanus vaccination Tetanus: Every 1 0yrs [facility] Payers Date Payer Category Payer Medicare [id number] 2021 Unknown ANTHEM BLUE CROS S AND BLUE SHIELD ANTHREKHA MOONUE O [id number] 2021-Present [phone] [address] [place] [address] O [id number] 2020 Medicaid MEDICAID [facility] [id number] 2020-Present [id number] 2019 Medicare [employer] MANAGED SELINA PALMAA MCR ADVANTAGE CHOICE O [id number] 2019-Present [id number] 2019 Private Health Insurance [id number] 2016 Medicare [id number] 2013 Medicaid [id number] 1957 Unknown [id number] 1955 Unknown [id number] Social History Date Type Detail Facility History of Tobacco Use Never Smoker Community Action Committee [facility] Other Start: 03-11-2020 End: 07-21-2020 Tobacco smoking status NHIS Never Smoker Community Action Committee [facility] ([employer] Other Sex Assigned At Female Commun ity Action Committee [facility] Other Start: 07-21-2020 Tobacco use and exposure Never used [facility] Start: 07-21-2020 Alcohol intake Ex-drinker (finding) [facility] Start: 1955 Sex Assigned At Not on file [facility] Exposure to SARS-CoV-2 (event) Not sure [facility] Tobacco smoking status NHIS Tobacco smoking consumption unknown [facility] Progress note 05-02-2022 Note Date & Type Note Facility 05-02-2022 Note HNO ID: [id number] Author: Jeff Joyner APRN.ORDER PROCESSOR Service: ? Author Type: Nurse Practitioner Type: Progress Notes Filed: 05/02/2022 6:44 PM Note Text: Patient triaged at [facility]. Here today with dizziness/lightheaded, needing to lean against wall for stability. Denies uri symptoms, ear pain, h/a. Patient not known to [facility], I will refer patient to ER, friend to drive pov. Unclear what hospital patient will go to. [facility] History of Present illness Narrative 05-02-2022 Jeff Joyner APRN.ORDER PROCESSOR - 05/02/2022 4:30 PM EDT Note Date & Type Note Facility 05-02-2022 History of Presen t illness Narrative Patient triaged at [facility]. Here today with dizziness/lightheaded, needing to lean against wall for stability. Denies uri symptoms, ear pain, h/a. Patient not known to [facility], I will refer patient to ER, friend to drive pov. Unclear what hospital patient will go to. documented in this encounter [facility] Evaluation note Note Date & Type Note Facility documented in this encounter [facility] Summary Purpose Family History No Family History Records FoundNo Family History Records FoundNo Family History Records FoundNo Family History Records FoundNo Family History Records FoundNo Family History Records FoundNo Family History Records Found Advance Directives No Advanced Directives Records FoundDocuments on File Type Date Recorded Patient Rn Diabetes Expl anation Advance Directives and Living Will Documents on File Type Date Recorded Patient Rn Diabetes Expl anation Advance Directives and Living Will Assessments Encounter Date Diagnosis Notes February, Dental caries on pit and fissure surface penetrating into pulp (ICD-10 - K02.53) Diagnosis Chest pain, unspecified type- Primary Diagnosis Trapezius strain, right, initial encounter- Primary Chest pain, unspecified type Reason for Referral Status Reason Specialty Diagnoses / Procedures Referred By Contact Referred To Contact Pending Review Emergency Medicine Diagnoses Chest pain, unspecified type Deborah Francois CNP [address] [place] [address] [facility] [address] [place] [address] Instructions * Patient Instructions* Deborah Francois CNP - 07/21/2020 3:45 PM EDT Go directly to [facility] Emergency Department immediately for further evaluation and treatment located at [address] [address]. [phone]. Chest Pain: Care Instructions Your Care Instructions There are many things that can cause chest pain. Some are not serious and will get better on their own in a few days. But some kinds of chest pain need more testing and treatment. Your doctor may have recommended a follow-up visit in the next 8 to 12 hours. If you are not getting better, you may need more tests or treatment. Even though your doctor has released you, you still need to watch for any problems. The doctor carefully checked you, but sometimes problems can develop later. If you have new symptoms or if your symptoms do not get better, get medical care right away. If you have worse or different chest pain or pressure that lasts more than 5 minutes or you passed out (lost consciousness), call 911 or seek other emergency help right away. A medical visit is only one step in your treatment. Even if you feel better, you still need to do what your doctor recommends, such as going to all suggested follow-up appointments and taking medicines exactly as directed. This will help you recover and help prevent future problems. How can you care for yourself at home? Rest until you feel better. Take your medicine exactly as prescribed. Call your doctor if you think you are having a problem with your medicine. Do not drive after taking a prescription pain medicine. When should you call for help? Call 911 if: You passed out (lost consciousness). You have severe difficulty breathing. You have symptoms of a heart attack. These may include: ? Chest pain or pressure, or a strange feeling in your chest. ? Sweating. ? Shortness of breath. ? Nausea or vomiting. ? Pain, pressure, or a strange feeling in your back, neck, jaw, or upper belly or in one or both shoulders or arms. ? Lightheadedness or sudden weakness. ? A fast or irregular heartbeat. After you call 911, the gear shaper set up operator may tell you to chew 1 adult-strength or 2 to 4 low-dose aspirin. Wait for an ambulance. Do not try to drive yourself. Call your doctor today if: You have any trouble breathing. Your chest pain gets worse. You are dizzy or lightheaded, or you feel like you may faint. You are not getting better as expected. You are having new or different chest pain. Where can you learn more? Log into your personal health record on [email or web address][email or web address] and enter A120 in the Education box to learn more about Chest Pain: Care Instructions. Current as of: April 17, 2019 Content Version: 12.6 [facility]. Care instructions adapted under license by your healthcare professional. If you have questions about a medical condition or this instruction, always ask your healthcare professional. [facility] disclaims any warranty or liability for your use of this information. documented in this encounter History of Present Illness * Deborah Francois CNP - 07/21/2020 3:46 PM EDT [facility] Brief Evaluation Form Patient Transfer to ED without Admit to Urgent Care Date: 07/21/20 Time: 3:50 PM Name: Lauren Morillo : [address] [place] [id number] (home) Lauren Morillo [facility] with Chest Pain (Rt side chest pain that radiates to her back. Pt states she had pleurisy in the past and is prone to blood clots.) . BP 130/81 Pulse 81 Temp 98.7 F (37.1 C) (Tympanic) Resp (!) 20 Wt 74.4 kg (164 lb) SpO2 97% Allergies: Aspirin and Epinephrine Lauren Morillo has a current medication list which includes the following prescription(s): alendronate, atorvastatin, famotidine, and oxybutynin. Lauren Morillo has no past medical history on file. Exam: Lauren Morillo was seen by Deborah Francois CNP and is being transferred to [facility] ed dept Lauren Morillo being transported via [employer] (Other), has declined transport to referred ED against medical advise. STATED HER sister to drive HER - VERBALIZED UNDERSTANDING OF THE RISK AND CONSEQUENCES OF NOT GOING BY AMBULANCE TO THE HOSPITAL . The encounter diagnosis was Chest pain, unspecified type. Discussion Regarding Transfer: Transfer Center Called Additional Comments: patient came in with report of mid- sternum to right side of chest to her mid upper back. Denies falling or injuring herself. Reports feeling having difficulty breathing especially when taking a deep breath. Denies URI SYMPTOMS, LEFT SIDED CHEST PAIN, ABDOMINAL PAIN, N/V/D, DIZZINESS, SWEATING, CHILLS, HEADACHE. PATIENT REPORT PAIN IS SEVERE AND STARTED SUDDENLY YESTERDAY. REPORTED HAVING HISTORY OF dvt IN THE PAST WELL. PATIENT A/OX4, VSS AND STABLE AT THE TIME OF LEAVING TO GO TO [facility]. Deborah Francois CNP 07/21/20 *Transfer location subject to change based on patient condition during transport at EMS discretion. documented in this encounter Discharge Instructions * Attachments The following attachments cannot be sent through Care Everywhere. * Chest Pain ([place]) * Rhomboid Muscle Strain: Rehab Exercises ([place]) documented in this encounter Additional Source Comments INFORMATION SOURCE (unrecogn ized section and content) DATE CREATED AUTHOR AUTHOR'S ORGANIZ ATION 05/05/2019 [facility] DATE CREATED AUTHOR AUTHOR'S ORGANIZ ATION 05/20/2020 [facility] DATE CREATED AUTHOR AUTHOR'S ORGANIZ ATION 07/21/2020 [facility] DATE CREATED AUTHOR AUTHOR'S ORGANIZ ATION 12/07/2020 [facility] DATE CREATED AUTHOR AUTHOR'S ORGANIZ ATION 05/03/2022 [facility] DATE CREATED AUTHOR AUTHOR'S ORGANIZ ATION 06/03/2023 [facility] ospital REASON FOR VISIT (unrecogniz ed section and content) Reason Comments Chest Pain MEDICAL (GENERAL) HISTORY (u nrecognized section and content) Pamella Christine RN - 07/21/2020 4:57 PM EDTBooKylah ribera RN - 07/21/2020 4:08 PM EDTPLo wang RN - 07/21/2020 4:02 PM EDT ED Notes (unrecognized secti on and content) Pt up to use restroom Pt has strong gait and in no distress Will continue to monitor Pt reports 'I've been having chest pain on my right side and I haven't taken anything for it. I know I'm under a lot of stress with my mom but this isn't going away . Bed: 20 Expected date: Expected time: Means of arrival: Comments: CPP documented in this encounter Source Comments (unrecognize d section and content) In the event this informatio n is protected by the Federal Confidentiality of Alcohol and Drug Abuse Patient Records regulations: The Federal rules restrict any use of the information to criminally investigate or prosecute any alcohol or drug abuse patient.[facility] FOR RECORDS PERTAINING TO PATIENTS WHO ARE OR HAVE BEEN ENROLLED IN A CHEMICAL DEPENDENCY/SUBSTANCEABUSE PROGRAM, SOME INFORMATION MAY BE OMITTED. This clinical summary was aggregated from multiple sources. Caution should be exercised in using it in the provision of clinical care. This summary normalizes information from multiple sources, and as a consequence, information in this document may materially change the coding, format and clinical context of patient data. In addition, data may be omitted in some cases. CLINICAL DECISIONS SHOULD BE BASED ON THE PRIMARY CLINICAL RECORDS. [employer] [facility]. provides no warranty or guarantee of the accuracy or completeness of information in this document.
== END | disposition home or self-care (01) ==
LOC: LAB 14:16
PROVIDERS: Nurse Practitioner Family; PCP Internal Medicine; Referring Provider Internal Medicine; Visit Provider Internal Medicine
DX: Z13.220 Encounter for screening for lipoid disorders (principal); I10 Essential (primary) hypertension; E78.5 Hyperlipidemia, unspecified; E05.20 Thyrotoxicosis with toxic multinodular goiter without thyrotoxic crisis or storm; J12.81 Pneumonia due to SARS-associated coronavirus; E55.9 Vitamin D deficiency, unspecified
CPT/HCPCS: 36415; 80053; 80061; 82306; 82607; 84439; 84443; 84481; 85025

== ENCOUNTER → 2024-04-10 | Outpatient (CLI) | payer MEDICARE, MEDICAID, SELFPAY ==
--- NOTE | 2024-04-10 12:07 | BI_ITS ---
MAMMOGRAPHY - BILATERAL SCREENING REASON FOR EXAM: Female, 68 years old. Routine annual screening examination. PERTINENT HISTORY: Non-contributory. TECHNIQUE: Digital bilateral breast sue (3D mammographic acquisition) in the CC and MLO projections. 2-D mediolateral oblique (MLO) and craniocaudad (CC) views of both breasts were obtained. CAD: Full Field Digital Mammography with Computer Added Detection was performed. COMPARISON: Comparison is made with prior study dated January 16, 2023 and February 24, 2021. FINDINGS: Breast Composition: The breasts are almost entirely fatty. There are no dominant masses or suspicious calcifications. The previously seen nodular density in the anterior upper slightly medial aspect of the right breast is not seen at this time. No other significant abnormalities are identified. BI/SCRN MAMM (CAD)W/SUE BILAT IMPRESSION: Stable bilateral screening mammogram. Yearly follow-up mammogram recommended. (A) ASSESSMENT CATEGORY: BIRADS Category 2: Benign. A letter regarding these results will be sent to the patient by the facility within 30 days. Approximately 10% of breast cancers are not detected by mammography. A normal mammogram should not delay biopsy of a clinically suspicious abnormality. [id number] Electronically Signed: Gigi Johnston MD at 13:08 EDT ,
[2024-04-10 13:41] LABS: Hemoglobin A1c 5.8 % (3.8-5.6)
== END | disposition home or self-care (01) ==
PROVIDERS: PCP Internal Medicine; Referring Provider Surgery; Visit Provider Surgery
DX: Z12.31 Encounter for screening mammogram for malignant neoplasm of breast (principal); R73.09 Other abnormal glucose
CPT/HCPCS: 36415; 77063; 77067; 83036

== ENCOUNTER → 2024-04-29 | Outpatient (CLI) | payer MEDICARE, MEDICAID, SELFPAY ==
[2024-05-03 04:07] LABS: Clam <0.10 kU/L (Class 0); Codfish <0.10 kU/L (Class 0); Corn <0.10 kU/L (Class 0); Egg, White <0.10 kU/L (Class 0); Milk (Cow) 0.31 kU/L (Class 0/I); Peanut <0.10 kU/L (Class 0); SCALLOP <0.10 kU/L (Class 0); SESAME SEED <0.10 kU/L (Class 0); Shrimp 0.37 kU/L (Class I); Soybean <0.10 kU/L (Class 0); Walnut, (Food) <0.10 kU/L (Class 0); Wheat 0.18 kU/L (Class 0/I)
== END | disposition home or self-care (01) ==
PROVIDERS: PCP Internal Medicine; Referring Provider Otolaryngology; Visit Provider Otolaryngology
DX: T78.40XA Allergy, unspecified, initial encounter (principal); X58.XXXA Exposure to other specified factors, initial encounter
CPT/HCPCS: 36415; 86003

== ENCOUNTER → 2024-07-01 | Outpatient (CLI) | payer MEDICARE, MEDICAID, SELFPAY ==
--- NOTE | 2024-07-01 12:54 | ECHOD_ITS ---
Reason For Study: BICUSPID AV Procedure This was a 2D Doppler, Color Flow transthoracic echocardiogram. Exam performed in department. Left Ventricle Normal LV size. Left ventricular systolic function is normal. The left ventricular ejection fraction is 65 %. Stage 1 diastolic dysfunction. No regional wall motion abnormalities noted. Right Ventricle Normal RV size. The right ventricle is normal in size, function, and thickness. Aortic Valve Trisinus/trileaflet aortic valve. Moderate focal aortic valve calcification. Peak aortic valve gradient 24 mmHg. Mean aortic valve gradient 12 mmHg. Mild (1+) aortic valve insufficiency. Pulmonic Valve Normal pulmonic valve. Great Vessels Normal aortic root. The pulmonary artery is normal size. Normal inferior vena cava. Pericardium/Pleural No pericardial effusion. MMode/2D Measurements & Calculations LVIDd: 4.5 cm IVSd: 1.0 cm LVOT diam: 1.9 cm LVIDs: 2.8 cm LVPWd: 1.0 cm RVDd: 2.8 cm FS: 38.5 % LVOT area: 2.9 cm2 Ao root diam: 3.0 cm LAV(MOD-bp): 49.3 ml LVAd ap4: 26.2 cm2 LAV(MOD-bp) Indexed: 29.0 ml/m2 LVLd ap4: 7.0 cm LAV(MOD-sp2): 46.5 ml EDV(MOD-sp4): 80.7 ml LAV(MOD-sp4): 43.2 ml EDV(sp4-el): 83.4 ml LVAs ap4: 13.2 cm2 LVLs ap4: 5.6 cm ESV(MOD-sp4): 25.8 ml ESV(sp4-el): 26.2 ml EF(MOD-sp4): 68.0 % EF(sp4-el): 68.5 % SV(MOD-sp4): 54.9 ml SV(sp4-el): 57.2 ml LA A4 area: 15.2 cm2 LA dimension(2D): 3.7 cm RA A4 area: 8.5 cm2 Time Measurements MV dec time: 0.23 sec Doppler Measurements & Calculations MV E max jose: 87.7 cm/sec Lat Peak E' Jose: 5.0 cm/sec Med Peak E' Jose: 5.9 cm/sec MV A max jose: 88.9 cm/sec E/E' lat: 17.4 E/E' med: 14.9 MV E/A: 0.99 MV V2 max: 101.5 cm/sec MV dec slope: 390.3 cm/sec2 Ao V2 max: 244.7 cm/sec MV max P.1 mmHg Ao max P.9 mmHg MV V2 mean: 62.1 cm/sec Ao V2 mean: 156.9 cm/sec MV mean P.8 mmHg Ao mean P.6 mmHg MV V2 VTI: 43.8 cm Ao V2 VTI: 58.1 cm MVA(VTI): 2.5 cm2 AV (velocity ratio): 0.63 NATALIE(I,D): 1.9 cm2 NATALIE(V,D): 1.6 cm2 AI max jose: 480.0 cm/sec LV V1 max: 131.5 cm/sec SV(LVOT): 107.9 ml AI max P.1 mmHg LV V1 max P.9 mmHg AI dec slope: 200.9 cm/sec2 LV V1 mean P.8 mmHg AI P1/2t: 699.6 msec LV V1 mean: 91.8 cm/sec LV V1 VTI: 36.9 cm PA V2 max: 90.0 cm/sec PA V2 mean: 64.9 cm/sec ECHO/Echo Complete Interpretation Summary Normal LV size. Left ventricular systolic function is normal. The left ventricular ejection fraction is 65 %. Stage 1 diastolic dysfunction. Moderate focal aortic valve calcification. Mean aortic valve gradient 12 mmHg. Trisinus/trileaflet aortic valve. Ordering Physician: Tea Lobato Referring Physician: Tea Lobato Performed By: Dania Carranza and Student
--- NOTE | 2024-07-01 12:54 | ART_ITS ---
Reason For Study: PVD Procedure A bilateral lower extremity continuous wave Doppler with analog waveform analysis and ankle brachial indexes. Left Segmental Pressures Left brachial= 151mmHg. Left posterior tibial artery = 177mmHg. Left dorsalis pedis artery = 156mmHg. Left digit = 100 mmHg. The left posterior tibial artery waveforms are triphasic. The left dorsalis pedis waveforms are triphasic. Right Segmental Pressures Right brachial= 162mmHg. Right posterior tibial artery = 175mmHg. Right dorsalis pedis artery = 158mmHg. Right digit = 115 mmHg. The right posterior tibial artery waveforms are triphasic. The right dorsalis pedis waveforms are triphasic. Indices The right ankle brachial index by the posterior tibial artery is 1.08. The right ankle brachial index by the dorsalis pedis is 0.98. The right digital-brachial index is 0.71. The left ankle brachial index by the posterior tibial artery is 1.09. The left ankle brachial index by the dorsalis pedis is 0.96. The left digital-brachial index is 0.62. VL/Ankle Brachial Index Interpretation Summary Triphasic Doppler waveforms are noted at ankle level bilaterally. Pulse-volume recordings appear satisfactory at ankle level bilaterally, but mildly diminished at digital level bilaterally. Resting ankle-brachial indices are normal bilaterally. The right digital-brachial index is normal. The left digital-brachial index is mildly diminished. Arterial flow appears normal at ankle level bilaterally, and at digital level o n the right. There is evidence of mild arterial occlusive disease at digital level on the left. Ordering Physician: Tea Christine Referring Physician: TEA CHRISTINE MD Performed By: Nader Moreira T
== END | disposition home or self-care (01) ==
LOC: CVS 12:48
PROVIDERS: PCP Internal Medicine; Referring Provider Internal Medicine; Visit Provider Internal Medicine
DX: I35.1 Nonrheumatic aortic (valve) insufficiency (principal); I73.9 Peripheral vascular disease, unspecified
CPT/HCPCS: 93306; 93922

== ENCOUNTER → 2024-07-19 | Outpatient (CLI) | payer MEDICARE, MEDICAID, SELFPAY ==
[2024-07-19 12:26] LABS: Absolute Lymphocyte Count 1.86 X10^3/uL (0.83-4.51); Absolute Neutrophil Count 3.6 X10^3/uL (2.0-7.7); Basophil# 0.01 X10^3/uL; Basophil% 0.2 % (0-1); Eosinophil# 0.13 X10^3/uL; Eosinophils% 2.1 % (0-5); Hematocrit 42.5 % (37-47); Lymphocyte # 1.86 X10^3/ul (0.83-4.51); Lymphocyte % 30.5 % (19-41); Mean Corp Hgb Conc 32.9 g/dL (32-36); Mean Corpuscular Hgb 28.9 pg (27.0-32.0); Mean Corpuscular Volume 87.6 fL (81-99); Mean Platelet Vol. 9.5 fl (6.2-12.0); Monocyte# 0.46 X10^3/uL; Monocyte% 7.6 % (0-10); NRBC Flagged by Analyzer 0 % (0-5); Neutrophil # 3.61 X10^3/uL (2.7-7.7); Neutrophil % 59.3 % (47-70); Platelet Count 185 K/mm3 (150-450); RBC Distribution Width CV 13.4 % (11.6-14.6); RBC Distribution Width SD 42.9 fl (35.1-43.9); Red Blood Count 4.85 M/mm3 (4.2-5.4); White Blood Count 6.1 K/mm3 (4.4-11.0)
[2024-07-19 13:20] LABS: Vitamin D,25 Hydroxy 29.9 ng/mL
[2024-07-19 13:39] LABS: AST(SGOT) 18 U/L (15-37); Alanine Aminotransfer ALT/SGPT 22 U/L (13-56); Albumin, Serum 3.6 g/dL (3.2-5.0); Alkaline Phosphatase 119 U/L (45-117); Anion Gap 3 (5-15); BUN 11 mg/dL (7-18); Calcium,Total 9.9 mg/dL (8.5-10.1); Chloride 108 mmol/L (98-107); Cholesterol 154 mg/dL (200); Creatinine, Serum 0.73 mg/dL (0.55-1.02); EST Glomerular Filtration Rate 84 mL/min (>60); Est Glom Filt Rate - Afr Amer 102 mL/min (>60); Free T3 2.4 pg/mL (2.18-3.98); Globulin 3.7 g/dL (2.2-4.2); Glucose 119 mg/dL (74-106); High Density Lipoprotein 43 mg/dL; Potassium 3.9 mmol/L (3.5-5.1); Protein, Total 7.3 g/dL (6.4-8.2); Sodium Level 140 mmol/L (136-145); T4 Free Direct 0.98 ng/dL (0.76-1.46); Triglycerides 178 mg/dL; Very Low Density Lipoprotein 36 mg/dL (5-40)
[2024-07-19 15:10] LABS: Hemoglobin A1c 5.9 % (3.8-5.6)
== END | disposition home or self-care (01) ==
LOC: LAB 12:01
PROVIDERS: PCP Internal Medicine; Referring Provider Internal Medicine; Visit Provider Internal Medicine
DX: Z13.220 Encounter for screening for lipoid disorders (principal); E11.9 Type 2 diabetes mellitus without complications; E05.90 Thyrotoxicosis, unspecified without thyrotoxic crisis or storm; I10 Essential (primary) hypertension; E78.5 Hyperlipidemia, unspecified; E55.9 Vitamin D deficiency, unspecified
CPT/HCPCS: 36415; 80053; 80061; 82306; 83036; 84439; 84443; 84481; 85025

== ENCOUNTER 2025-02-02 16:09 | Emergency (ER) | payer MEDICAID, MEDICARE, SELFPAY ==
[2025-02-02 16:13] VITALS: BP 169/79; PULSE 67; RESP 18; TEMP 36.8; O2SAT 94; BMI 38.7
--- NOTE | 2025-02-02 16:44 | EX.ED.DYSGE1 ---
HPI <VITO Snow - Last Filed: 02/02/25 17:41> History of Present Illness Chief Complaint: Back Narrative Narrative: 69-year-old female developed atraumatic pain that started in her right trapezius and is now in both trapezius and both sides of her mid back over the last week. No injury or change in activity. It hurts more with movement. She has no chest pain or shortness of breath. No abdominal pain or nausea or vomiting. No pain in her upper or lower extremities. She saw her primary care doctor 2 days ago and was prescribed prednisone and Flexeril but it was not delivered by the mail pharmacy yet. She she has been taking Tylenol [id number]. [facility] <VITO Snow - Last Filed: 02/02/25 17:41> [facility] Medical History (Updated 02/02/25 @ 17:06 by VITO Snow) Muscle spasm of right shoulder Family hx of colon cancer History of macular degeneration Factor 5 Leiden mutation, heterozygous History of blood clots Vitamin B12 deficiency Hyperthyroidism Goiter Macular degeneration H/O: pneumonia Osteoporosis Hypertension Diabetes Cataract Blood clot in vein Arthritis Hyperlipidemia Home Medications ?Medication ?Instructions ?Recorded ?Last Taken ?Type calcium 600 mg (as carbonate)-vit 1 tab PO BID 02/18/21 Unknown History D3 20 mcg (800 unit) chewable tablet (Caltrate plus D) mecobalamin (vitamin B12) 1,000 500 mcg sublingual MOWEFR 02/18/21 Unknown History mcg disintegrating tablet,sublingual multivitamin 1 tab PO DAILY 02/18/21 Unknown History omega-3 fatty acids 1,000 mg 1,000 mg PO BID 02/18/21 Unknown History capsule vitamins A,C,E-rwan-qahukd 4,296 1 cap PO BID 02/18/21 Unknown History mcg-226 mg-90 mg capsule (PreserVision AREDS) atorvastatin 20 mg tablet 20 mg PO QHS CHOLESTEROL #90 tabs 12/18/24 Unknown Rx blood sugar diagnostic (Accu-Chek #200 ea 12/18/24 Unknown Rx Filomena Plus test strips) famotidine 20 mg tablet 20 mg PO BID GERD #180 tabs 12/18/24 Unknown Rx lancets 28 gauge (Comfort EZ #200 ea 12/18/24 Unknown Rx Lancets) methimazole 5 mg tablet 5 mg PO MOTUWETH #16 tabs 12/18/24 Unknown Rx oxybutynin chloride 5 mg tablet 5 mg PO BID #180 tabs 12/18/24 Unknown Rx cetirizine 10 mg tablet (Zyrtec) 10 mg PO QDAY PRN 01/30/25 Unknown History cyclobenzaprine 5 mg tablet 5 mg PO TID PRN muscle spasm #14 01/30/25 Unknown Rx tabs methylprednisolone 4 mg tablets in See Rx Instructions PO PER PKG DIR 01/30/25 Unknown Rx a dose pack (Medrol (Jonathan)) #21 tabs orphenadrine citrate 100 mg 100 mg PO BID 5 days #10 tabs 02/02/25 Unknown Rx tablet,extended release Allergy/AdvReac Type Severity Reaction Status Date / Time epinephrine Allergy Anaphylaxis Verified 02/02/25 16:09 Penicillins AdvReac Dizzt, Verified 02/02/25 16:09 Light headed Family History Grandmother Diabetes Mother Diabetes CVA (cerebral vascular accident) Father Heart disease Alzheimer disease Aunt Cancer Colon cancer Other Asthma Myocardial infarction Thyroid disorder Surgical History S/P breast biopsy, right History of colonoscopy with polypectomy History of bladder repair surgery History of hysterectomy Social History household members: none current occupational status: retired Smoking Status: Never smoker alcohol intake: never substance use type: does not use what type of physical activity do you participate in: walking frequency: daily ROS <VITO Snow - Last Filed: 02/02/25 17:41> ROS ED ROS Narrative Constitutional: Negative for fever, chills, malaise. CVS: Negative for chest pain. Respiratory: Negative for shortness of breath. GI: Negative for abdominal pain, nausea, vomiting. G EXAM <VITO Snow - Last Filed: 02/02/25 17:41> Physical Exam Narrative Exam Narrative: CONST: Patient sitting in no acute distress. EYES: Normal inspection. NECK: Normal inspection. No midline tenderness or step-offs RESP: No respiratory distress, CTAB. CVS: Regular rate and rhythm, no murmur, no gallop. ABD: Soft and nontender, no guarding or rebound, nondistended. Back: Normal inspection. No midline tenderness over the cervical, thoracic, or lumbar spine. Tender palpation over both trapezius muscles and bilateral thoracic muscles. No overlying skin changes. SKIN: Color normal, no rash, warm, dry, intact. EXTREMITIES: Normal appearance, full ROM upper and lower extremities, 5/5 strength, 2+ radial and DP pulses. NEURO: Alert and answering questions appropriately. PSYCH: Normal affect. Const Vital Signs: 02/02/25 16:13 02/02/25 17:22 Temperature 98.3 F 97.0 F L Temperature Source Oral Pulse Rate 67 65 Respiratory Rate 18 18 Blood Pressure 169/79 H 154/80 H Blood Pressure Mean 109 104 Pulse Ox 94 98 Oxygen Delivery Method Room Air <Dr. Terry Galeano DO - Last Filed: 02/04/25 14:30> Physical Exam Const Vital Signs: 02/02/25 16:13 02/02/25 17:22 Temperature 98.3 F 97.0 F L Temperature Source Oral Pulse Rate 67 65 Respiratory Rate 18 18 Blood Pressure 169/79 H 154/80 H Blood Pressure Mean 109 104 Pulse Ox 94 98 Oxygen Delivery Method Room Air [facility] <VITO Snow - Last Filed: 02/02/25 17:41> [facility] Narrative Medical decision making narrative: 69-year-old female presents with atraumatic bilateral trapezius and thoracic back pain. She appears well and nontoxic. Vital signs stable. She has reproducible pain of the upper and mid back muscles without any spinal tenderness. Normal cardiopulmonary exam. She denies chest pain or shortness of breath. H&P are consistent with musculoskeletal pain and she had improvement after IM Toradol and Norflex. I prescribed Norflex to a local pharmacy that she can use until her mail prescriptions from her PCP arrive. She was comfortable with this plan and discharged in stable condition. <Dr. Terry Galeano DO - Last Filed: 02/04/25 14:30> [facility] Narrative Medical decision making narrative: 69-year-old female presents with atraumatic bilateral trapezius and thoracic back pain. She appears well and nontoxic. Vital signs stable. She has reproducible pain of the upper and mid back muscles without any spinal tenderness. Normal cardiopulmonary exam. She denies chest pain or shortness of breath. H&P are consistent with musculoskeletal pain and she had improvement after IM Toradol and Norflex. I prescribed Norflex to a local pharmacy that she can use until her mail prescriptions from her PCP arrive. She was comfortable with this plan and discharged in stable condition. Supervisory Physician Note Patient was seen and examined with the Advanced Practice Provider. Nursing notes and vital signs have been reviewed. Pertinent old records have been reviewed. I agree with the essential elements of the AP's history, physical exam, assessment, and plan. The differential diagnosis and management options were discussed with the AP. I participated in determining and agree with the management, procedures, final impression and disposition as documented. See changes noted by me. Please see addendum or separate note for any additional details. Gen: A&O x3, NAD Head: Normocephalic, atraumatic Eyes: No sclera icterus, conjunctiva clear, PERRL, EOMI ENT: Moist mucous membranes Neck: Trachea midline, No JVD, no midline spinal tenderness, full range of motion, mild tenderness to palpation over both trapezius muscles and bilateral paraspinal thoracic muscles CV: RRR, no murmurs Resp: Lungs CTA BL, no w/r/c GI: Abd soft, non-distended, non-tender, no r/r/g Musc: Full ROM, no deformity, no spinal TTP, no anthony step-offs, strength plus 5 out of 5 in all extremities, radial/DP/PT pulses +2 bilaterally Skin: Warm, dry, intact Neuro: Alert, oriented, grossly intact, sensation intact Psych: Cooperative, appropriate mood and affect Denies numbness, weakness, urinary retention, stool or urinary incontinence, saddle anesthesia, recent invasive manipulation of the spine, intravenous drug use, or fever. Patient presents for back pain. There has been no trauma. There is nothing to suggest any infectious etiology. There is no neurologic findings to suggest an acute cauda equina syndrome, infectious etiology, or any acute radiculopathy. At this point I do not feel any emergent imaging such as x-rays or MRI are warranted. Patient symptoms were treated and she was discharged home. Impression: 1. Thoracic back spasm Discharge Plan Triage Chief Complaint: Back ED Midlevel Provider: Karla Boyce ED Provider: Terry Galeano Dx/Rx/DC Orders Clinical Impression: Acute upper back pain, Musculoskeletal pain Instructions: Communicating About Pain, Back Basics: A Healthy Spine Prescriptions: New orphenadrine citrate 100 mg tablet extended release 100 mg PO BID 5 Days Qty: 10 0RF No Action mecobalamin (vitamin B12) 1,000 mcg tablet,disintegrating 500 mcg sublingual MOWEFR Rx Instructions: place tablet under tongue and allow to dissolve for at least30 secs before swallowing omega-3 fatty acids 1,000 mg capsule 1,000 mg PO BID PreserVision AREDS 14,320-226-200 [id number]-ua-xybd capsule 1 cap PO BID multivitamin Tablet 1 tab PO DAILY Caltrate 600 plus D 600 mg (1,500 mg)-800 unit tablet,chewable 1 tab PO BID cetirizine [Zyrtec] 10 mg tablet 10 mg PO QDAY PRN methylprednisolone [Medrol (Jonathan)] 4 mg tablets,dose pack See Rx Instructions PO PER PKG DIR Qty: 21 0RF Rx Instructions: PO PER PKG DIR for 6 days cyclobenzaprine 5 mg tablet 5 mg PO TID PRN (Reason: muscle spasm) Qty: 14 0RF atorvastatin 20 mg tablet 20 mg PO QHS Qty: 90 3RF (DME) Accu-Chek Filomena Plus test strp Strip See Rx Instructions .Route Qty: 200 3RF Rx Instructions: bid famotidine 20 mg tablet 20 mg PO BID Qty: 180 3RF (DME) lancets [Comfort EZ Lancets] 28 gauge misc See Rx Instructions .Route Qty: 200 3RF Rx Instructions: bid methimazole 5 mg tablet 5 mg PO MOTUWETH Qty: 16 2RF oxybutynin chloride 5 mg tablet 5 mg PO BID Qty: 180 3RF Primary Care Provider: Tea Lobato Referrals: Tea Lobato MD [Primary Care Provider] - Activity Restrictions/Additional Instructions: Your back pain appears to be musculoskeletal. You were treated with a pain reliever called Toradol and a muscle relaxer called Norflex. 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 Please call your [facility] pharmacy tomorrow to check on the delivery of your medications. Print Language: Citizen Of [place] Disposition Disposition: Home, Self Care Discharge Date/Time: 02/02/25 17:33
[2025-02-02] MEDS: Orphenadrine 100 MG Tablet PO (16:52)
[2025-02-02] MEDS: Ketorolac 15 MG/ML Vial IM (16:52)
[2025-02-02 17:22] VITALS: BP 154/80; PULSE 65; RESP 18; TEMP 36.1; O2SAT 98
--- NOTE | 2025-02-02 18:12 | ED.RN ---
pharmacy unable to get med filled. has prescription from [facility] - awaiting delivery. wrote down times that pt received meds in ED.
== END 2025-02-02 17:33 | disposition home or self-care (01) ==
PROVIDERS: Emergency Provider Surgery; PCP Internal Medicine; Visit Provider Surgery
DX: M54.6 Pain in thoracic spine (principal); E11.9 Type 2 diabetes mellitus without complications; I10 Essential (primary) hypertension; E78.5 Hyperlipidemia, unspecified
CPT/HCPCS: 96372; 99283

== ENCOUNTER → 2025-02-06 | Outpatient (CLI) | payer MEDICAID, MEDICARE, SELFPAY ==
[2025-02-06 12:40] LABS: Absolute Lymphocyte Count 2.67 X10^3/uL (0.83-4.51); Absolute Neutrophil Count 4.5 X10^3/uL (2.0-7.7); Basophil# 0.01 X10^3/uL; Basophil% 0.1 % (0-1); Eosinophil# 0.02 X10^3/uL; Eosinophils% 0.3 % (0-5); Hematocrit 39.3 % (37-47); Hemoglobin 13.1 g/dL (12.0-15.0); Lymphocyte # 2.67 X10^3/ul (0.83-4.51); Lymphocyte % 34.4 % (19-41); Mean Corp Hgb Conc 33.3 g/dL (32-36); Mean Corpuscular Hgb 28.8 pg (27.0-32.0); Mean Corpuscular Volume 86.4 fL (81-99); Mean Platelet Vol. 9.6 fl (6.2-12.0); Monocyte# 0.54 X10^3/uL; Monocyte% 6.9 % (0-10); NRBC Flagged by Analyzer 0 % (0-5); Neutrophil # 4.51 X10^3/uL (2.7-7.7); Platelet Count 244 K/mm3 (150-450); RBC Distribution Width CV 13.3 % (11.6-14.6); RBC Distribution Width SD 41.9 fl (35.1-43.9); Red Blood Count 4.55 M/mm3 (4.2-5.4); White Blood Count 7.8 K/mm3 (4.4-11.0)
[2025-02-06 13:13] LABS: Hemoglobin A1c 6.2 % (<=5.6)
[2025-02-06 13:51] LABS: ALB/GLOB Ratio 1.3 RATIO (0.9-2.4); AST(SGOT) 20 U/L (<=31); Alanine Aminotransfer ALT/SGPT 14 U/L (<=34); Albumin, Serum 4.2 g/dL (3.4-4.8); Alkaline Phosphatase 106 U/L (35-104); Anion Gap 11 (5-15); BUN 17 mg/dL (4-19); BUN/Creat Ratio 26.1 RATIO (10-20); Calcium,Total 10.1 mg/dL (7.6-11.0); Carbon Dioxide 26.2 mmol/L (21.0-32.0); Chloride 105 mmol/L (98-108); Cholesterol 151 mg/dL (<=200); Creatinine, Serum 0.66 mg/dL (0.70-1.20); EST Glomerular Filtration Rate 96 (>60); Globulin 3.1 g/dL (2.2-4.2); Glucose 83 mg/dL (70-99); High Density Lipoprotein 45 mg/dL; Low Density Lipoprotein Calc. 80 mg/dL; Potassium 3.9 mmol/L (3.3-5.1); Protein, Total 7.3 g/dL (5.9-8.4); Sodium Level 142 mmol/L (133-145); Total Bilirubin 0.48 mg/dL (0.00-1.30); Triglycerides 130 mg/dL; Very Low Density Lipoprotein 26 mg/dL (5-40); cholesterol:hdl ratio screen 3.39
[2025-02-06 14:20] LABS: Vitamin B12 > 4000 pg/mL (180-914); Vitamin D,25 Hydroxy 25.2 ng/mL (30-100)
== END | disposition home or self-care (01) ==
LOC: LAB 11:26
PROVIDERS: PCP Internal Medicine; Referring Provider Internal Medicine; Visit Provider Internal Medicine
DX: E05.90 Thyrotoxicosis, unspecified without thyrotoxic crisis or storm (principal); E11.9 Type 2 diabetes mellitus without complications; E53.8 Deficiency of other specified B group vitamins; I10 Essential (primary) hypertension; E78.5 Hyperlipidemia, unspecified; E55.9 Vitamin D deficiency, unspecified
CPT/HCPCS: 36415; 80053; 80061; 82306; 82607; 83036; 84439; 84443; 84481; 85025

== ENCOUNTER → 2025-04-02 | Outpatient (CLI) | payer MEDICARE, MEDICAID, SELFPAY ==
--- NOTE | 2025-04-02 12:13 | RAD_ITS ---
PROCEDURE: CHEST PA AND LATERAL 04/02/2025 REASON FOR EXAM: COUGH, DYSPNEA TECHNIQUE: Frontal and lateral views of the chest. COMPARISON: Portable chest, 09/30/2020. FINDINGS: The lungs are clear. The heart borders and pulmonary vascular pattern are normal. There is calcific vascular disease of the thoracic aorta. The upper abdominal bowel gas pattern is normal. There are no significant bony abnormalities of the chest. RAD/Chest PA and Lateral IMPRESSION: No evidence of acute cardiopulmonary pathology. Reading Location: [place] [id number]
== END | disposition home or self-care (01) ==
LOC: RAD 12:08
PROVIDERS: PCP Internal Medicine; Referring Provider Internal Medicine; Visit Provider Internal Medicine
DX: J06.9 Acute upper respiratory infection, unspecified (principal); R06.00 Dyspnea, unspecified; R05.9 Cough, unspecified
CPT/HCPCS: 71046

== ENCOUNTER → 2025-04-29 | Outpatient (CLI) | payer MEDICARE, MEDICAID, SELFPAY ==
--- NOTE | 2025-04-29 12:55 | BI_ITS ---
EXAM: SCRN MAMM (CAD)W/SUE BILAT DATE: 04/29/2025 CLINICAL HISTORY: F, Age 69 y/o , BREAST CANCER SCREENING TECHNIQUE: SCRN MAMM (CAD)W/SUE BILAT COMPARISON: Prior exam(s) dated April 10, 2024.. FINDINGS: TISSUE DENSITY: The breasts are almost entirely fatty. Bilateral Breast Mammographic Findings: No significant masses, calcifications or other abnormalities are identified. No suspicious masses, areas of developing architectural distortion, or suspicious calcifications. There has been no significant interval change. BI/SCRN MAMM (CAD)W/SUE BILAT IMPRESSION: Stable examination. OVERALL FINAL ASSESSMENT BI-RADS 1: NEGATIVE. RECOMMEND ANNUAL MAMMOGRAPHIC SCREENING. RECOMMENDATION: Routine annual follow-up in 1 Year A letter with findings and recommendations will be mailed to the patient. Reading Location: [place] [address]
== END | disposition home or self-care (01) ==
PROVIDERS: PCP Internal Medicine; Referring Provider Internal Medicine; Visit Provider Internal Medicine
DX: Z12.31 Encounter for screening mammogram for malignant neoplasm of breast (principal)
CPT/HCPCS: 77063; 77067

== ENCOUNTER → 2025-07-21 | Outpatient (CLI) | payer MEDICARE, MEDICAID, SELFPAY ==
[2025-07-21 12:24] LABS: Hematocrit 42.5 % (37-47); Hemoglobin 14.6 g/dL (12.0-15.0); Immature Granulocytes Count 0.010 X10^3/uL (0.0-0.0); Mean Corp Hgb Conc 34.4 g/dL (32-36); Mean Corpuscular Volume 86.2 fL (81-99); Mean Platelet Vol. 10.0 fl (6.2-12.0); NRBC Flagged by Analyzer 0 % (0-5); Platelet Count 166 K/mm3 (150-450); RBC Distribution Width CV 13.5 % (11.6-14.6); RBC Distribution Width SD 42.9 fl (35.1-43.9); Red Blood Count 4.93 M/mm3 (4.2-5.4); White Blood Count 6.1 K/mm3 (4.4-11.0)
[2025-07-21 13:39] LABS: AST(SGOT) 24 U/L (<=31); Alanine Aminotransfer ALT/SGPT 14 U/L (<=34); Albumin, Serum 4.3 g/dL (3.4-4.8); Alkaline Phosphatase 110 U/L (35-104); Anion Gap 11 (5-15); BUN 14 mg/dL (4-19); BUN/Creat Ratio 19.8 RATIO (10-20); Calcium,Total 10.2 mg/dL (7.6-11.0); Carbon Dioxide 24.6 mmol/L (21.0-32.0); Chloride 103 mmol/L (98-108); Free T3 2.7 pg/mL (2.18-3.98); Globulin 2.9 g/dL (2.2-4.2); Glucose 106 mg/dL (70-99); Magnesium 2.1 mg/dL (1.5-2.2); Potassium 4.0 mmol/L (3.3-5.1); Vitamin D,25 Hydroxy 29.5 ng/mL (30-100)
== END | disposition home or self-care (01) ==
LOC: LAB 11:01
PROVIDERS: PCP Internal Medicine; Referring Provider Internal Medicine; Visit Provider Internal Medicine
DX: E11.65 Type 2 diabetes mellitus with hyperglycemia (principal); J06.9 Acute upper respiratory infection, unspecified; I35.1 Nonrheumatic aortic (valve) insufficiency; I10 Essential (primary) hypertension; E55.9 Vitamin D deficiency, unspecified; E05.90 Thyrotoxicosis, unspecified without thyrotoxic crisis or storm; E53.8 Deficiency of other specified B group vitamins
CPT/HCPCS: 36415; 80053; 82306; 83036; 83735; 84439; 84443; 84481; 85025

== ENCOUNTER → 2025-08-06 | Outpatient (CLI) | payer MEDICARE, MEDICAID, SELFPAY ==
--- NOTE | 2025-08-06 14:10 | US_ITS ---
PROCEDURE: THYROID 08/06/2025 REASON FOR EXAM: RIGHT LOWER THYROID ENLARGEMENT TECHNIQUE: Procedure Code: USTHY Modality: US Procedure: THYROID COMPARISON: None FINDINGS: Right thyroid lobe size: 4.5 x 1.8 x 1.3 cm Left thyroid lobe size: 4.4 x 1.7 x 0.9 cm Isthmus: 0.2 cm Background parenchymal echotexture is heterogeneous There is a 0.5 x 0.4 x 0.4 cm cyst in the right lobe US/Thyroid IMPRESSION: Normal-sized heterogeneous thyroid gland with a 0.5 cm cyst in the right lobe. No specific follow-up needed. No suspicious findings RECOMMENDATION: Based on most suspicious nodule. Nodule size = largest diameter Only evaluate nodule if =>5 mm. Growth > 20% in 2 dimensions = worsening. Follow up to 4 nodules. Recommend biopsy for no more than 2 nodules. Reading Location: [id number]
--- NOTE | 2025-08-06 14:10 | US_ITS ---
PROCEDURE: THYROID 08/06/2025 REASON FOR EXAM: RIGHT LOWER THYROID ENLARGEMENT TECHNIQUE: Procedure Code: USTHY Modality: US Procedure: THYROID COMPARISON: None FINDINGS: Right thyroid lobe size: 4.5 x 1.8 x 1.3 cm Left thyroid lobe size: 4.4 x 1.7 x 0.9 cm Isthmus: 0.2 cm Background parenchymal echotexture is heterogeneous There is a 0.5 x 0.4 x 0.4 cm cyst in the right lobe US/Thyroid IMPRESSION: Normal-sized heterogeneous thyroid gland with a 0.5 cm cyst in the right lobe. No specific follow-up needed. No suspicious findings RECOMMENDATION: Based on most suspicious nodule. Nodule size = largest diameter Only evaluate nodule if =>5 mm. Growth > 20% in 2 dimensions = worsening. Follow up to 4 nodules. Recommend biopsy for no more than 2 nodules. Reading Location: [id number]
== END | disposition home or self-care (01) ==
LOC: US 14:06
PROVIDERS: PCP Internal Medicine; Referring Provider Internal Medicine; Visit Provider Internal Medicine
DX: E04.9 Nontoxic goiter, unspecified (principal)
CPT/HCPCS: 76536

== ENCOUNTER → 2025-09-08 | Outpatient (CLI) | payer MEDICARE, MEDICAID, SELFPAY ==
--- NOTE | 2025-09-08 16:03 | CT_ITS ---
PROCEDURE: SOFT TISSUE NECK WITH CONTRAST 09/08/2025 REASON FOR EXAM: LUMP IN THROAT, DYSPHAGIA, NECK LUMP TECHNIQUE: Procedure Code: CTNEW Modality: CT Procedure: SOFT TISSUE NECK WITH CONTRAST CONTRAST: Isovue 370 VOLUME: 77 mL One or more dose reduction techniques were used (e.g., Automated exposure control, adjustment of the mA and/or kV according to patient size, use of iterative reconstruction technique). RADIATION DOSE SUMMARY: CTDlvol: 16.75 mGy DLP: 502.09 mGycm COMPARISON: None. FINDINGS: Airway: Midline and patent. Salivary glands: Unremarkable. Lymph nodes: No cervical lymphadenopathy. Thyroid: Unremarkable. Vasculature: Unremarkable. Orbits: Unremarkable at visualized levels. Paranasal sinuses and mastoids: Lung apices: Clear. Upper mediastinum: Visualized mediastinum is unremarkable. Bones: Multilevel degenerative changes of the spine. No acute bony abnormalities. CT/Soft Tissue Neck WITH Contrast IMPRESSION: Unremarkable CT of the neck without acute or suspicious findings. Reading Location: [id number]
== END | disposition home or self-care (01) ==
LOC: CT 16:02
PROVIDERS: PCP Internal Medicine; Referring Provider Internal Medicine; Visit Provider Internal Medicine
DX: E04.9 Nontoxic goiter, unspecified (principal); R13.10 Dysphagia, unspecified
CPT/HCPCS: 70491; Q9967

== ENCOUNTER → 2025-09-23 | Outpatient (CLI) | payer MEDICARE, MEDICAID, SELFPAY ==
--- NOTE | 2025-09-23 12:50 | ECHOD_ITS ---
Reason For Study Reason For Study: Murmur Procedure This was a 2D Doppler, Color Flow transthoracic echocardiogram. Exam performed in department. Left Ventricle Normal size and thickness. The left ventricular ejection fraction is 65 %. No evidence for diastolic dysfunction. Right Ventricle Normal right ventricle. Atria The left and right atria are normal. Mitral Valve Moderate (2+) mitral valve insufficiency. Tricuspid Valve Trivial tricuspid valve insufficiency. Right ventricular systolic pressure estimated to be 42 mmHg. Aortic Valve Mild calcific aortic valve stenosis. Mean peak gradient 17 mmHg. Mild to moderate aortic valve regurgitation. Pulmonic Valve The pulmonic valve is not well visualized. Trivial pulmonic valve insufficiency. Great Vessels Normal sized aortic root. Pericardium/Pleural No pericardial effusion. MMode/2D Measurements & Calculations LVIDd: 4.0 cm IVSd: 0.90 cm LVOT diam: 2.0 cm LVIDs: 2.7 cm LVPWd: 0.95 cm LVOT area: 3.0 cm2 RVDd: 2.8 cm FS: 30.9 % Ao root diam: 3.0 cm LAV(MOD-bp): 46.0 ml LVAd ap4: 26.0 cm2 LAV(MOD-bp) Indexed: 26.8 ml/m2 LVLd ap4: 7.1 cm LAV(MOD-sp2): 49.2 ml EDV(MOD-sp4): 78.4 ml LAV(MOD-sp4): 39.0 ml EDV(sp4-el): 80.5 ml LVAs ap4: 13.4 cm2 LVLs ap4: 5.8 cm ESV(MOD-sp4): 26.5 ml ESV(sp4-el): 26.6 ml EF(MOD-sp4): 66.3 % EF(sp4-el): 66.9 % SV(MOD-sp4): 52.0 ml SV(sp4-el): 53.8 ml LA A4 area: 15.5 cm2 SI(MOD-sp4): 30.3 ml/m2 LA dimension(2D): 3.8 cm RA A4 area: 9.0 cm2 TAPSE: 1.9 cm Time Measurements MV dec time: 0.28 sec Doppler Measurements & Calculations MV E max jose: 81.3 cm/sec Lat Peak E' Jose: 8.1 cm/sec Med Peak E' Jose: 5.1 cm/sec MV A max jose: 106.4 cm/sec E/E' lat: 10.1 E/E' med: 16.0 MV E/A: 0.76 Ao V2 max: 271.1 cm/sec AI max jose: 514.6 cm/sec MV dec slope: 292.3 cm/sec2 Ao max P.4 mmHg AI max P.9 mmHg Ao V2 mean: 192.9 cm/sec Ao mean P.8 mmHg AI dec slope: 332.3 cm/sec2 Ao V2 VTI: 68.6 cm AI P1/2t: 453.6 msec AV (velocity ratio): 0.39 NATALIE(I,D): 1.2 cm2 NATALIE(V,D): 1.2 cm2 LV V1 max: 103.6 cm/sec SV(LVOT): 80.8 ml PA V2 max: 88.2 cm/sec LV V1 max P.3 mmHg LV V1 mean P.8 mmHg LV V1 mean: 80.2 cm/sec LV V1 VTI: 26.8 cm PI end-d jose: 101.6 cm/sec TR max jose: 260.9 cm/sec TR max P.2 mmHg ECHO/Echo Complete Interpretation Summary The left ventricular ejection fraction is 65 %. No evidence for diastolic dysfunction. Moderate (2+) mitral valve insufficiency. Right ventricular systolic pressure estimated to be 42 mmHg. Mild calcific aortic valve stenosis. Mean peak gradient 17 mmHg. Mild to modera te aortic valve regurgitation. Ordering Physician: Tea Lobato Referring Physician: Tea Lobato Performed By: Pamella Luna, ANGELA, RVT
== END | disposition home or self-care (01) ==
LOC: CVS 12:50
PROVIDERS: PCP Internal Medicine; Referring Provider Internal Medicine; Visit Provider Internal Medicine
DX: I35.1 Nonrheumatic aortic (valve) insufficiency (principal); R01.1 Cardiac murmur, unspecified
CPT/HCPCS: 93306